=== PATIENT | male | born 1965 | race Caucasian/White ===

== ENCOUNTER 2017-12-18 06:59 | Inpatient (IN) | payer MEDICARE, BC ==
[2017-12-18 09:53] LABS: BASOPHILS % (AUTO) 1 % (0-3); EOSINOPHILS % (AUTO) 1 % (0-9); HEMATOCRIT 38 % (39-53); LYMPHOCYTES % (AUTO) 7.31 % (10-50); MEAN CORPUSCULAR HEMOGLOBIN 28.3 pg (27.0-32.0); MEAN CORPUSCULAR HGB CONC 34.1 gm/dl (32.0-36.0); MEAN CORPUSCULAR VOLUME 83 fL (80-100); NEUTROPHILS % (AUTO) 80.2 % (37-80)
[2017-12-18 10:03] LABS: CALCIUM 8.9 mg/dl (8.5-10.1); CARBON DIOXIDE 28.8 mEq/L (21-32); CREATININE 1.28 mg/dl (0.80-1.30); CRP INFLAMMATORY 4.84 mg/dl (0.00-0.33); POTASSIUM 3.9 mMol/L (3.5-5.1)
[2017-12-18] MEDS ORDERED: SODIUM CHLORIDE 0.9% IV SCH ×2 (13:00→15:00)
[2017-12-18] MEDS ORDERED: LEVOFLOXACIN IV SCH ×2 (13:00→15:00)
[2017-12-18] MEDS ORDERED: TACROLIMUS 2 MG PO SCH ×2 (13:00→22:00)
[2017-12-18] MEDS ORDERED: VANCOMYCIN HCL 500 MG PDS 1,000 MG in SODIUM CHLORIDE 0.9% 250 ML 250 ML IV SCH (14:00)
[2017-12-18] MEDS ORDERED: LEVOFLOXACIN 25 MG/ML SOL IV ONE (14:16)
[2017-12-18] MEDS ORDERED: SODIUM CHLORIDE 0.9% 50 ML 50 ML IV ONE (14:16)
[2017-12-18] MEDS ORDERED: VANCOMYCIN HYDROCHLORIDE 500 MG PDS IV ONE (15:42)
[2017-12-18] MEDS ORDERED: SODIUM CHLORIDE 0.9% 250 ML 250 ML IV ONE (15:42)
[2017-12-18] MEDS ORDERED: NOVOLOG FLEXPEN SC SCH ×2 (18:00)
[2017-12-18] MEDS ORDERED: TACROLIMUS 1 MG CAP PO SCH (21:00)
[2017-12-18] MEDS ORDERED: NOVOLOG FLEXPEN SC ONE (21:21)
[2017-12-18] MEDS: SODIUM CHLORIDE 0.9% FLUSH 10 ML SOL IV SCH (22:02)
[2017-12-18] MEDS: METOPROLOL TARTRATE 50 MG TAB PO SCH ×2 (22:05→23:00)
[2017-12-18] MEDS: ATORVASTATIN 10 MG TAB PO SCH (22:06)
[2017-12-18] MEDS: MYCOPHENOLATE 250 MG PO SCH (22:07)
[2017-12-18] MEDS: TACROLIMUS 1 MG CAP PO SCH (22:22)
[2017-12-19 06:58] LABS: BASOPHILS % (AUTO) 1 % (0-3); EOSINOPHILS % (AUTO) 1 % (0-9); HEMATOCRIT 35 % (39-53); HEMOGLOBIN 11.7 gm/dl (13.5-17.7); LYMPHOCYTES % (AUTO) 16.6 % (10-50); MEAN CORPUSCULAR HGB CONC 33.8 gm/dl (32.0-36.0); MEAN CORPUSCULAR VOLUME 83 fL (80-100); MONOCYTES % (AUTO) 14.3 % (0-12); NEUTROPHILS % (AUTO) 67.2 % (37-80)
[2017-12-19 07:06] LABS: CALCIUM 9.1 mg/dl (8.5-10.1); CARBON DIOXIDE 29.2 mEq/L (21-32); CREATININE 1.26 mg/dl (0.80-1.30); CRP INFLAMMATORY 5.14 mg/dl (0.00-0.33); POTASSIUM 4.2 mMol/L (3.5-5.1)
[2017-12-19] MEDS: SODIUM CHLORIDE 0.9% FLUSH 10 ML SOL IV SCH ×3 (07:22→21:05)
[2017-12-19] MEDS ORDERED: MULTIVITAMIN2 1 EA TAB PO SCH ×2 (09:00→21:00)
[2017-12-19] MEDS: INSULIN DEGLUDEC 100 UNIT SQ SCH (09:14)
[2017-12-19] MEDS: MYCOPHENOLATE 250 MG PO SCH ×2 (09:15→21:05)
[2017-12-19] MEDS: DULOXETINE HCL 30 MG CAPSULE.DR PO SCH (09:18)
[2017-12-19] MEDS: TACROLIMUS PO SCH (09:18)
[2017-12-19] MEDS: PANTOPRAZOLE SODIUM 40 MG ECT PO SCH (09:19)
[2017-12-19] MEDS: PREDNISONE 5 MG TAB PO SCH (09:19)
[2017-12-19] MEDS: METOPROLOL SUCCINATE 50 MG ER TAB PO SCH (09:19)
[2017-12-19] MEDS ORDERED: PHARMACOKINETICS 1 MISC PRN (09:46)
[2017-12-19] MEDS: NOVOLOG FLEXPEN SC SCH ×3 (11:33→21:01)
[2017-12-19] MEDS: VANCOMYCIN HCL 500 MG PDS 1,000 MG in SODIUM CHLORIDE 0.9% 250 ML 250 ML IV SCH (12:29)
[2017-12-19] MEDS ORDERED: ENOXAPARIN 40 MG SOL SC SCH (13:15)
[2017-12-19] MEDS: LEVOFLOXACIN 25 MG/ML 500 MG in SODIUM CHLORIDE 0.9% 100 ML 100 ML IV SCH (14:36)
[2017-12-19] MEDS ORDERED: VANCOMYCIN HCL 500 MG PDS 1,000 MG in SODIUM CHLORIDE 0.9% 250 ML 250 ML IV SCH (16:00)
[2017-12-19] MEDS: TACROLIMUS 1 MG CAP PO SCH (21:05)
[2017-12-19] MEDS: ATORVASTATIN 10 MG TAB PO SCH (21:05)
[2017-12-20] MEDS ORDERED: VANCOMYCIN HYDROCHLORIDE 500 MG PDS IV ONE ×3 (00:01→23:44)
[2017-12-20] MEDS ORDERED: SODIUM CHLORIDE 0.9% 250 ML 250 ML IV ONE ×3 (00:01→23:44)
[2017-12-20] MEDS: VANCOMYCIN HCL 500 MG PDS 1,000 MG in SODIUM CHLORIDE 0.9% 250 ML 250 ML IV SCH ×3 (00:15→23:58)
[2017-12-20] MEDS: SODIUM CHLORIDE 0.9% FLUSH 10 ML SOL IV SCH ×5 (00:17→23:59)
[2017-12-20 06:59] LABS: BASOPHILS % (AUTO) 1 % (0-3); EOSINOPHILS % (AUTO) 1 % (0-9); HEMATOCRIT 36 % (39-53); HEMOGLOBIN 12.4 gm/dl (13.5-17.7); LYMPHOCYTES % (AUTO) 16.5 % (10-50); MEAN CORPUSCULAR HEMOGLOBIN 28.3 pg (27.0-32.0); MEAN CORPUSCULAR HGB CONC 34.4 gm/dl (32.0-36.0); MEAN CORPUSCULAR VOLUME 82 fL (80-100); MONOCYTES % (AUTO) 11.6 % (0-12); NEUTROPHILS % (AUTO) 70.1 % (37-80)
[2017-12-20 07:10] LABS: CALCIUM 9.5 mg/dl (8.5-10.1); CARBON DIOXIDE 28.8 mEq/L (21-32); CREATININE 1.4 mg/dl (0.80-1.30); POTASSIUM 4.4 mMol/L (3.5-5.1)
[2017-12-20] MEDS: NOVOLOG FLEXPEN SC SCH ×4 (07:50→21:41)
[2017-12-20] MEDS ORDERED: INSULIN DEGLUDEC 200 UNIT/ML INSULN.PEN SQ SCH (09:00)
[2017-12-20] MEDS: DULOXETINE HCL 30 MG CAPSULE.DR PO SCH (09:05)
[2017-12-20] MEDS: MYCOPHENOLATE 250 MG PO SCH ×2 (09:05→21:43)
[2017-12-20] MEDS: TACROLIMUS PO SCH (09:06)
[2017-12-20] MEDS: METOPROLOL SUCCINATE 50 MG ER TAB PO SCH (09:06)
[2017-12-20] MEDS: PREDNISONE 5 MG TAB PO SCH (09:06)
[2017-12-20] MEDS ORDERED: INSULIN DEGLUDEC 200 UNIT/ML INSULN.PEN SQ ONE ×2 (10:00→15:00)
[2017-12-20] MEDS ORDERED: BUPIVACAINE HCL 0.25% MPF 30 ML SOL INFIL ONE (12:41)
[2017-12-20] MEDS ORDERED: FENTANYL 100MCG/2ML SOL ONE (12:42)
[2017-12-20] MEDS ORDERED: MIDAZOLAM 2 MG/2 ML SOL ONE ×2 (12:42→13:25)
[2017-12-20] MEDS ORDERED: LIDOCAINE HCL 1% MPF 30 SOL ONE (13:21)
[2017-12-20] MEDS ORDERED: BACITRACIN 500 U/GM OIN TOP ONE (13:46)
[2017-12-20] MEDS ORDERED: LEVOFLOXACIN 25 MG/ML SOL IV ONE (14:39)
[2017-12-20] MEDS ORDERED: SODIUM CHLORIDE 0.9% 100 ML 100 ML IV ONE (14:39)
[2017-12-20] MEDS: LEVOFLOXACIN 25 MG/ML 500 MG in SODIUM CHLORIDE 0.9% 100 ML 100 ML IV SCH (14:45)
[2017-12-20] MEDS: TACROLIMUS 1 MG CAP PO SCH (21:43)
[2017-12-20] MEDS: ATORVASTATIN 10 MG TAB PO SCH (21:43)
[2017-12-21] MEDS: SODIUM CHLORIDE 0.9% FLUSH 10 ML SOL IV SCH ×3 (05:04→21:06)
[2017-12-21 07:20] LABS: BASOPHILS % (AUTO) 1 % (0-3); EOSINOPHILS % (AUTO) 2 % (0-9); HEMATOCRIT 33 % (39-53); HEMOGLOBIN 11.5 gm/dl (13.5-17.7); LYMPHOCYTES % (AUTO) 18.6 % (10-50); MEAN CORPUSCULAR HEMOGLOBIN 29.1 pg (27.0-32.0); MEAN CORPUSCULAR HGB CONC 35.2 gm/dl (32.0-36.0); MEAN CORPUSCULAR VOLUME 83 fL (80-100); MONOCYTES % (AUTO) 11.5 % (0-12); NEUTROPHILS % (AUTO) 67.1 % (37-80)
[2017-12-21 07:32] LABS: ALBUMIN 2.5 gm/dl (3.4-5.0); BILIRUBIN,TOTAL 0.3 mg/dl (0.2-1.0); CALCIUM 8.9 mg/dl (8.5-10.1); CARBON DIOXIDE 27.9 mEq/L (21-32); CREATININE 1.25 mg/dl (0.80-1.30); CRP INFLAMMATORY 4.12 mg/dl (0.00-0.33); POTASSIUM 4.2 mMol/L (3.5-5.1); TOTAL PROTEIN 6.5 gm/dl (6.4-8.2)
[2017-12-21] MEDS: NOVOLOG FLEXPEN SC SCH ×4 (07:39→21:00)
[2017-12-21] MEDS: PANTOPRAZOLE SODIUM 40 MG ECT PO SCH (08:51)
[2017-12-21] MEDS: DULOXETINE HCL 30 MG CAPSULE.DR PO SCH (08:51)
[2017-12-21] MEDS: PREDNISONE 5 MG TAB PO SCH (08:51)
[2017-12-21] MEDS: METOPROLOL SUCCINATE 50 MG ER TAB PO SCH (08:52)
[2017-12-21] MEDS: MYCOPHENOLATE 250 MG PO SCH ×2 (08:53→21:06)
[2017-12-21] MEDS: INSULIN DEGLUDEC 100 UNIT SQ SCH (08:59)
[2017-12-21] MEDS: TACROLIMUS PO SCH (09:01)
[2017-12-21] MEDS ORDERED: SODIUM CHLORIDE 0.9% 250 ML 250 ML IV ONE ×2 (11:47→22:32)
[2017-12-21] MEDS ORDERED: VANCOMYCIN HYDROCHLORIDE 500 MG PDS IV ONE ×2 (11:47→22:32)
[2017-12-21] MEDS: VANCOMYCIN HCL 500 MG PDS 1,000 MG in SODIUM CHLORIDE 0.9% 250 ML 250 ML IV SCH ×2 (11:57→23:19)
[2017-12-21] MEDS ORDERED: SODIUM CHLORIDE 0.9% 100 ML 100 ML IV ONE (15:59)
[2017-12-21] MEDS ORDERED: LEVOFLOXACIN 25 MG/ML SOL IV ONE (15:59)
[2017-12-21] MEDS: LEVOFLOXACIN 25 MG/ML 500 MG in SODIUM CHLORIDE 0.9% 100 ML 100 ML IV SCH (16:30)
[2017-12-21] MEDS: TACROLIMUS 1 MG CAP PO SCH (21:06)
[2017-12-21] MEDS: ATORVASTATIN 10 MG TAB PO SCH (21:06)
[2017-12-22] MEDS: SODIUM CHLORIDE 0.9% FLUSH 10 ML SOL IV SCH ×4 (02:00→18:56)
[2017-12-22] MEDS: NOVOLOG FLEXPEN SC SCH ×4 (07:26→21:32)
[2017-12-22] MEDS: PANTOPRAZOLE SODIUM 40 MG ECT PO SCH (09:34)
[2017-12-22] MEDS: METOPROLOL SUCCINATE 50 MG ER TAB PO SCH (09:34)
[2017-12-22] MEDS: DULOXETINE HCL 30 MG CAPSULE.DR PO SCH (09:35)
[2017-12-22] MEDS: PREDNISONE 5 MG TAB PO SCH (09:35)
[2017-12-22] MEDS: MYCOPHENOLATE 250 MG PO SCH ×2 (09:35→21:33)
[2017-12-22] MEDS: TACROLIMUS PO SCH (09:36)
[2017-12-22] MEDS: INSULIN DEGLUDEC 80 UNIT SQ SCH (10:09)
[2017-12-22] MEDS: INSULIN DEGLUDEC 100 UNIT SQ SCH (10:14)
[2017-12-22] MEDS: VANCOMYCIN HCL 500 MG PDS 1,000 MG in SODIUM CHLORIDE 0.9% 250 ML 250 ML IV SCH (12:43)
[2017-12-22] MEDS ORDERED: SODIUM CHLORIDE 0.9% 100 ML 100 ML IV ONE (13:20)
[2017-12-22] MEDS ORDERED: LEVOFLOXACIN 25 MG/ML SOL IV ONE (13:20)
[2017-12-22] MEDS ORDERED: SODIUM CHLORIDE 0.9% 250 ML 250 ML IV ONE ×2 (13:24→23:57)
[2017-12-22] MEDS ORDERED: VANCOMYCIN HYDROCHLORIDE 500 MG PDS IV ONE ×2 (13:24→23:57)
[2017-12-22] MEDS: LEVOFLOXACIN 25 MG/ML 500 MG in SODIUM CHLORIDE 0.9% 100 ML 100 ML IV SCH (15:03)
[2017-12-22] MEDS: ATORVASTATIN 10 MG TAB PO SCH (21:33)
[2017-12-22] MEDS: TACROLIMUS 1 MG CAP PO SCH (21:33)
[2017-12-23] MEDS: VANCOMYCIN HCL 500 MG PDS 1,000 MG in SODIUM CHLORIDE 0.9% 250 ML 250 ML IV SCH ×3 (00:05→23:55)
[2017-12-23] MEDS: SODIUM CHLORIDE 0.9% FLUSH 10 ML SOL IV SCH ×9 (00:06→23:56)
[2017-12-23] MEDS: NOVOLOG FLEXPEN SC SCH ×4 (07:52→21:41)
[2017-12-23] MEDS: MYCOPHENOLATE 250 MG PO SCH ×2 (09:16→21:40)
[2017-12-23] MEDS: DULOXETINE HCL 30 MG CAPSULE.DR PO SCH (09:17)
[2017-12-23] MEDS: PREDNISONE 5 MG TAB PO SCH (09:17)
[2017-12-23] MEDS: METOPROLOL SUCCINATE 50 MG ER TAB PO SCH (09:18)
[2017-12-23] MEDS: PANTOPRAZOLE SODIUM 40 MG ECT PO SCH (09:18)
[2017-12-23] MEDS: INSULIN DEGLUDEC 80 UNIT SQ SCH (09:19)
[2017-12-23 09:45] LABS: CALCIUM 9.1 mg/dl (8.5-10.1); CARBON DIOXIDE 28.6 mEq/L (21-32); CREATININE 1.25 mg/dl (0.80-1.30); CRP INFLAMMATORY 2.86 mg/dl (0.00-0.33); POTASSIUM 4.4 mMol/L (3.5-5.1)
[2017-12-23 09:51] LABS: BASOPHILS % (AUTO) 1 % (0-3); EOSINOPHILS % (AUTO) 2 % (0-9); HEMATOCRIT 33 % (39-53); HEMOGLOBIN 11.4 gm/dl (13.5-17.7); LYMPHOCYTES % (AUTO) 20.7 % (10-50); MEAN CORPUSCULAR HEMOGLOBIN 28.4 pg (27.0-32.0); MEAN CORPUSCULAR HGB CONC 34.6 gm/dl (32.0-36.0); MEAN CORPUSCULAR VOLUME 82 fL (80-100); MONOCYTES % (AUTO) 9.8 % (0-12); NEUTROPHILS % (AUTO) 66.4 % (37-80)
[2017-12-23] MEDS: TACROLIMUS PO SCH (10:07)
[2017-12-23] MEDS: ENOXAPARIN 40 MG SOL SC SCH (10:56)
[2017-12-23] MEDS: LEVOFLOXACIN 25 MG/ML 500 MG in SODIUM CHLORIDE 0.9% 100 ML 100 ML IV SCH (14:32)
[2017-12-23] MEDS: ATORVASTATIN 10 MG TAB PO SCH (21:40)
[2017-12-23] MEDS: TACROLIMUS 1 MG CAP PO SCH (21:42)
[2017-12-23] MEDS ORDERED: SODIUM CHLORIDE 0.9% 250 ML 250 ML IV ONE (23:50)
[2017-12-23] MEDS ORDERED: VANCOMYCIN HYDROCHLORIDE 500 MG PDS IV ONE (23:50)
[2017-12-24] MEDS: SODIUM CHLORIDE 0.9% FLUSH 10 ML SOL IV SCH ×4 (01:55→23:30)
[2017-12-24] MEDS: NOVOLOG FLEXPEN SC SCH ×4 (06:52→21:46)
[2017-12-24 07:15] LABS: CALCIUM 9.3 mg/dl (8.5-10.1); CARBON DIOXIDE 28.7 mEq/L (21-32); CREATININE 1.17 mg/dl (0.80-1.30); POTASSIUM 4.3 mMol/L (3.5-5.1)
[2017-12-24 07:36] LABS: BASOPHILS % (AUTO) 1 % (0-3); EOSINOPHILS % (AUTO) 3 % (0-9); HEMATOCRIT 33 % (39-53); HEMOGLOBIN 11.4 gm/dl (13.5-17.7); LYMPHOCYTES % (AUTO) 24.3 % (10-50); MEAN CORPUSCULAR HEMOGLOBIN 28.4 pg (27.0-32.0); MEAN CORPUSCULAR HGB CONC 34.3 gm/dl (32.0-36.0); MEAN CORPUSCULAR VOLUME 83 fL (80-100); MONOCYTES % (AUTO) 8.5 % (0-12); NEUTROPHILS % (AUTO) 63.3 % (37-80)
[2017-12-24] MEDS: MYCOPHENOLATE 250 MG PO SCH ×2 (09:49→21:44)
[2017-12-24] MEDS: DULOXETINE HCL 30 MG CAPSULE.DR PO SCH (09:50)
[2017-12-24] MEDS: PREDNISONE 5 MG TAB PO SCH (09:51)
[2017-12-24] MEDS: PANTOPRAZOLE SODIUM 40 MG ECT PO SCH (09:51)
[2017-12-24] MEDS: METOPROLOL SUCCINATE 50 MG ER TAB PO SCH (09:52)
[2017-12-24] MEDS: ENOXAPARIN 40 MG SOL SC SCH (09:53)
[2017-12-24] MEDS: INSULIN DEGLUDEC 70 UNIT SQ SCH (09:54)
[2017-12-24] MEDS: TACROLIMUS PO SCH (09:55)
[2017-12-24] MEDS ORDERED: SODIUM CHLORIDE 0.9% 250 ML 250 ML IV ONE ×2 (12:03→23:14)
[2017-12-24] MEDS ORDERED: VANCOMYCIN HYDROCHLORIDE 500 MG PDS IV ONE ×2 (12:03→23:13)
[2017-12-24] MEDS: VANCOMYCIN HCL 500 MG PDS 1,000 MG in SODIUM CHLORIDE 0.9% 250 ML 250 ML IV SCH ×2 (12:16→23:28)
[2017-12-24] MEDS ORDERED: LEVOFLOXACIN 500 MG TAB PO SCH (14:30)
[2017-12-24] MEDS: ATORVASTATIN 10 MG TAB PO SCH (21:44)
[2017-12-24] MEDS: TACROLIMUS 1 MG CAP PO SCH (21:45)
[2017-12-25 01:26] VITALS: RESP 16
[2017-12-25] MEDS: SODIUM CHLORIDE 0.9% FLUSH 10 ML SOL IV SCH ×2 (03:52→10:02)
[2017-12-25] MEDS: NOVOLOG FLEXPEN SC SCH ×2 (07:13→12:46)
[2017-12-25 07:22] LABS: HEMATOCRIT 36 % (39-53); HEMOGLOBIN 12.2 gm/dl (13.5-17.7); MEAN CORPUSCULAR HEMOGLOBIN 28.2 pg (27.0-32.0); MEAN CORPUSCULAR HGB CONC 34.2 gm/dl (32.0-36.0); MEAN CORPUSCULAR VOLUME 82 fL (80-100)
[2017-12-25 07:27] LABS: ALBUMIN 2.6 gm/dl (3.4-5.0); BILIRUBIN,TOTAL 0.3 mg/dl (0.2-1.0); CALCIUM 9.4 mg/dl (8.5-10.1); CARBON DIOXIDE 29.8 mEq/L (21-32); CREATININE 1.31 mg/dl (0.80-1.30); CRP INFLAMMATORY 1.1 mg/dl (0.00-0.33); POTASSIUM 4.4 mMol/L (3.5-5.1); TOTAL PROTEIN 6.6 gm/dl (6.4-8.2)
[2017-12-25 07:50] LABS: BAND NEUTROPHILS % (MANUAL) 4 %; BASOPHILS % (MANUAL) 0 % (0-3); EOSINOPHILS % (MANUAL) 2 % (0-9); LYMPHOCYTES % (MANUAL) 19 % (10-50); MONOCYTES % (MANUAL) 6 % (0-12); NEUTROPHILS % (MANUAL) 69 % (37-80); NORMAL RBCS PRESENT
[2017-12-25 08:22] VITALS: BP 151/81; PULSE 57; TEMP 97.6; O2SAT 98
[2017-12-25] MEDS: PANTOPRAZOLE SODIUM 40 MG ECT PO SCH (09:49)
[2017-12-25] MEDS: DULOXETINE HCL 30 MG CAPSULE.DR PO SCH (09:50)
[2017-12-25] MEDS: METOPROLOL SUCCINATE 50 MG ER TAB PO SCH (09:50)
[2017-12-25] MEDS: PREDNISONE 5 MG TAB PO SCH (09:50)
[2017-12-25] MEDS: MYCOPHENOLATE 250 MG PO SCH (09:51)
[2017-12-25] MEDS: TACROLIMUS PO SCH (09:52)
[2017-12-25] MEDS: ENOXAPARIN 40 MG SOL SC SCH (09:55)
[2017-12-25] MEDS: INSULIN DEGLUDEC 70 UNIT SQ SCH (09:56)
[2017-12-25] MEDS ORDERED: VANCOMYCIN HYDROCHLORIDE 500 MG PDS IV ONE (10:07)
[2017-12-25] MEDS ORDERED: SODIUM CHLORIDE 0.9% 250 ML 250 ML IV ONE (10:07)
[2017-12-25] MEDS: VANCOMYCIN HCL 500 MG PDS 1,000 MG in SODIUM CHLORIDE 0.9% 250 ML 250 ML IV SCH (11:09)
== END 2017-12-25 12:54 | disposition swing bed (61) | DRG 504 ==
LOC: WOUND 06:59 → ACUTE CARE 12:35
PROVIDERS: ADMIT Family Medicine; ATTEND Family Medicine
PROC: 0Y6Q0Z1 Detachment at Left 1st Toe, High, Open Approach (ICD-10-PCS; principal; 2017-12-20 13:00)
PROC: F01K5ZZ Range of Motion and Joint Integrity Assessment of Musculoskeletal System - Upper Back / Upper Extremity (ICD-10-PCS; 2017-12-24)
PROC: F02Z3ZZ Grooming/Personal Hygiene Assessment (ICD-10-PCS; 2017-12-24)
DX: I96 Gangrene, not elsewhere classified (principal); M86.9 Osteomyelitis, unspecified; S60.414A Abrasion of right ring finger, initial encounter; L03.90 Cellulitis, unspecified; Z79.4 Long term (current) use of insulin; E10.22 Type 1 diabetes mellitus with diabetic chronic kidney disease; N18.9 Chronic kidney disease, unspecified; Z89.021 Acquired absence of right finger(s); E10.65 Type 1 diabetes mellitus with hyperglycemia; S60.414D Abrasion of right ring finger, subsequent encounter; L97.524 Non-pressure chronic ulcer of other part of left foot with necrosis of bone; Z89.412 Acquired absence of left great toe
CPT/HCPCS: 36415; 80048; 80053; 82947; 82962; 85007; 85025; 85027; 87070; 87075; 87077; 87186; 93005; 99213; 99232; J1650; J1956; J2250; J3010; J3370; A6232; A6402; A6446; A9270-GY; J1815; J2001; L3260

== ENCOUNTER 2018-01-27 14:06 | Inpatient (IN) | payer MEDICARE, BC ==
[2018-01-27] MEDS ORDERED: PHARMACOKINETICS 1 MISC PRN (15:52)
[2018-01-27] MEDS ORDERED: SODIUM CHLORIDE 0.9% 500 ML 500 ML IV ONE (17:49)
[2018-01-27] MEDS ORDERED: VANCOMYCIN HYDROCHLORIDE 500 MG PDS IV ONE (17:49)
[2018-01-27] MEDS: VANCOMYCIN HCL 500 MG PDS 1,500 MG in SODIUM CHLORIDE 0.9% 500 ML 500 ML IV SCH (18:08)
[2018-01-27] MEDS: LEVOFLOXACIN 500 MG TAB PO SCH (18:08)
[2018-01-27] MEDS: NOVOLOG FLEXPEN SC SCH ×2 (20:07→22:00)
[2018-01-27] MEDS: ASPIRIN EC 81 MG PO SCH (21:27)
[2018-01-27] MEDS: ATORVASTATIN 10 MG TAB PO SCH (21:27)
[2018-01-27] MEDS: MULTIVITAMIN2 1 EA TAB PO SCH (21:27)
[2018-01-27] MEDS: TACROLIMUS 1 MG CAP PO SCH (21:30)
[2018-01-28] MEDS ORDERED: VANCOMYCIN HYDROCHLORIDE 500 MG PDS IV ONE ×2 (05:00→18:52)
[2018-01-28] MEDS ORDERED: SODIUM CHLORIDE 0.9% 500 ML 500 ML IV ONE ×3 (05:00→18:53)
[2018-01-28] MEDS: VANCOMYCIN HCL 500 MG PDS 1,500 MG in SODIUM CHLORIDE 0.9% 500 ML 500 ML IV SCH ×2 (05:45→18:59)
[2018-01-28 07:45] LABS: ALBUMIN 2.4 gm/dl (3.4-5.0); BILIRUBIN,TOTAL 0.3 mg/dl (0.2-1.0); CALCIUM 9.1 mg/dl (8.5-10.1); CARBON DIOXIDE 24.5 mEq/L (21-32); CREATININE 1.33 mg/dl (0.80-1.30); CRP INFLAMMATORY 10.73 mg/dl (0.00-0.33); POTASSIUM 4.2 mMol/L (3.5-5.1); TOTAL PROTEIN 5.9 gm/dl (6.4-8.2)
[2018-01-28 07:46] LABS: BASOPHILS % (AUTO) 1 % (0-3); EOSINOPHILS % (AUTO) 1 % (0-9); HEMATOCRIT 30 % (39-53); HEMOGLOBIN 10.5 gm/dl (13.5-17.7); MEAN CORPUSCULAR HEMOGLOBIN 27.8 pg (27.0-32.0); MEAN CORPUSCULAR HGB CONC 34.8 gm/dl (32.0-36.0); NEUTROPHILS % (AUTO) 73.3 % (37-80)
[2018-01-28 07:48] LABS: MEAN CORPUSCULAR VOLUME 80 fL (80-100)
[2018-01-28] MEDS ORDERED: TACROLIMUS 2 MG PO SCH (09:00)
[2018-01-28] MEDS ORDERED: OMEPRAZOLE 20 MG CAPSULE PO SCH (09:00)
[2018-01-28] MEDS: NOVOLOG FLEXPEN SC SCH ×4 (09:02→21:57)
[2018-01-28] MEDS: ENOXAPARIN 40 MG SOL SC SCH (09:03)
[2018-01-28] MEDS: INSULIN DEGLUDEC SQ SCH (09:10)
[2018-01-28] MEDS: DULOXETINE HCL 30 MG CAPSULE.DR PO SCH (10:09)
[2018-01-28] MEDS: METOPROLOL SUCCINATE 50 MG ER TAB PO SCH (10:10)
[2018-01-28] MEDS: ASPIRIN EC 81 MG PO SCH ×2 (10:10→21:56)
[2018-01-28] MEDS: LEVOFLOXACIN 500 MG TAB PO SCH (10:10)
[2018-01-28] MEDS: PANTOPRAZOLE SODIUM 40 MG ECT PO SCH (10:10)
[2018-01-28] MEDS: PREDNISONE 5 MG TAB PO SCH (10:10)
[2018-01-28] MEDS: TACROLIMUS 1 MG CAP PO SCH ×2 (10:13→21:54)
[2018-01-28] MEDS: MYCOPHENOLATE 250 MG PO SCH ×2 (11:18→21:55)
[2018-01-28] MEDS: ATORVASTATIN 10 MG TAB PO SCH (21:55)
[2018-01-28] MEDS: MULTIVITAMIN2 1 EA TAB PO SCH (21:56)
[2018-01-29] MEDS ORDERED: VANCOMYCIN HYDROCHLORIDE 500 MG PDS IV ONE ×2 (06:19→16:49)
[2018-01-29] MEDS ORDERED: SODIUM CHLORIDE 0.9% 500 ML 500 ML IV ONE ×2 (06:19→16:49)
[2018-01-29] MEDS: VANCOMYCIN HCL 500 MG PDS 1,500 MG in SODIUM CHLORIDE 0.9% 500 ML 500 ML IV SCH ×2 (06:37→17:23)
[2018-01-29 08:17] LABS: ALBUMIN 2.4 gm/dl (3.4-5.0); BILIRUBIN,TOTAL 0.2 mg/dl (0.2-1.0); CALCIUM 9.4 mg/dl (8.5-10.1); CARBON DIOXIDE 24.7 mEq/L (21-32); CREATININE 1.38 mg/dl (0.80-1.30); CRP INFLAMMATORY 7.33 mg/dl (0.00-0.33); POTASSIUM 4.5 mMol/L (3.5-5.1); TOTAL PROTEIN 6.2 gm/dl (6.4-8.2)
[2018-01-29] MEDS: LEVOFLOXACIN 500 MG TAB PO SCH (08:33)
[2018-01-29] MEDS: DULOXETINE HCL 30 MG CAPSULE.DR PO SCH (08:33)
[2018-01-29] MEDS: METOPROLOL SUCCINATE 50 MG ER TAB PO SCH (08:34)
[2018-01-29] MEDS: PREDNISONE 5 MG TAB PO SCH (08:34)
[2018-01-29] MEDS: MYCOPHENOLATE 250 MG PO SCH ×2 (08:35→22:11)
[2018-01-29] MEDS: INSULIN DEGLUDEC SQ SCH (08:35)
[2018-01-29 08:36] LABS: HEMATOCRIT 31 % (39-53); HEMOGLOBIN 10.6 gm/dl (13.5-17.7); MEAN CORPUSCULAR HEMOGLOBIN 27.5 pg (27.0-32.0); MEAN CORPUSCULAR HGB CONC 34.4 gm/dl (32.0-36.0)
[2018-01-29] MEDS: ENOXAPARIN 40 MG SOL SC SCH (08:36)
[2018-01-29] MEDS: NOVOLOG FLEXPEN SC SCH ×5 (08:36→22:16)
[2018-01-29 08:38] LABS: MEAN CORPUSCULAR VOLUME 80 fL (80-100)
[2018-01-29] MEDS: PANTOPRAZOLE SODIUM 40 MG ECT PO SCH (08:39)
[2018-01-29] MEDS: TACROLIMUS 1 MG CAP PO SCH ×2 (08:40→22:14)
[2018-01-29 09:17] LABS: BAND NEUTROPHILS % (MANUAL) 0 %; BASOPHILS % (MANUAL) 0 % (0-3); EOSINOPHILS % (MANUAL) 0 % (0-9); LYMPHOCYTES % (MANUAL) 11 % (10-50); MONOCYTES % (MANUAL) 8 % (0-12); NEUTROPHILS % (MANUAL) 81 % (37-80)
[2018-01-29 09:18] LABS: NORMAL RBCS NORMAL RBCS
[2018-01-29] MEDS ORDERED: INSULIN DEGLUDEC SQ SCH (10:30)
[2018-01-29] MEDS: ASPIRIN EC 81 MG PO SCH ×2 (10:41→22:15)
[2018-01-29] MEDS: ATORVASTATIN 10 MG TAB PO SCH (22:12)
[2018-01-29] MEDS: MULTIVITAMIN2 1 EA TAB PO SCH (22:15)
[2018-01-30] MEDS ORDERED: SODIUM CHLORIDE 0.9% 500 ML 500 ML IV ONE (06:24)
[2018-01-30] MEDS ORDERED: VANCOMYCIN HYDROCHLORIDE 500 MG PDS IV ONE (06:24)
[2018-01-30] MEDS: VANCOMYCIN HCL 500 MG PDS 1,500 MG in SODIUM CHLORIDE 0.9% 500 ML 500 ML IV SCH (06:35)
[2018-01-30] MEDS: NOVOLOG FLEXPEN SC SCH (06:42)
[2018-01-30 07:30] LABS: CALCIUM 9.6 mg/dl (8.5-10.1); CREATININE 1.23 mg/dl (0.80-1.30); CRP INFLAMMATORY 5.53 mg/dl (0.00-0.33); POTASSIUM 4.1 mMol/L (3.5-5.1)
[2018-01-30 08:16] VITALS: BP 154/66; PULSE 70; RESP 18; TEMP 98.7; O2SAT 92
[2018-01-30] MEDS ORDERED: NOVOLOG FLEXPEN SC SCH (08:25)
[2018-01-30] MEDS: PREDNISONE 5 MG TAB PO SCH (08:54)
[2018-01-30] MEDS: DULOXETINE HCL 30 MG CAPSULE.DR PO SCH (08:55)
[2018-01-30] MEDS: PANTOPRAZOLE SODIUM 40 MG ECT PO SCH (08:55)
[2018-01-30] MEDS: MYCOPHENOLATE 250 MG PO SCH (08:55)
[2018-01-30] MEDS: TACROLIMUS 1 MG CAP PO SCH (08:57)
[2018-01-30] MEDS ORDERED: INSULIN DEGLUDEC 200 UNIT/ML INSULN.PEN SQ SCH (09:00)
[2018-01-30] MEDS: ENOXAPARIN 40 MG SOL SC SCH (09:01)
[2018-01-30] MEDS: METOPROLOL SUCCINATE 50 MG ER TAB PO SCH (09:07)
[2018-01-30] MEDS: LEVOFLOXACIN 500 MG TAB PO SCH (09:07)
[2018-01-30] MEDS: ASPIRIN EC 81 MG PO SCH (09:07)
[2018-01-30 09:50] LABS: EOSINOPHILS % (AUTO) 2 % (0-9); HEMATOCRIT 32 % (39-53); HEMOGLOBIN 10.9 gm/dl (13.5-17.7); LYMPHOCYTES % (AUTO) 14.2 % (10-50); MEAN CORPUSCULAR HEMOGLOBIN 27.7 pg (27.0-32.0); MEAN CORPUSCULAR HGB CONC 33.5 gm/dl (32.0-36.0); MEAN CORPUSCULAR VOLUME 83 fL (80-100); MONOCYTES % (AUTO) 7.8 % (0-12); NEUTROPHILS % (AUTO) 75.5 % (37-80)
[2018-01-30 09:51] LABS: BASOPHILS % (AUTO) 0 % (0-3)
== END 2018-01-30 16:15 | disposition short-term general hospital (02) | DRG 541 ==
LOC: ACUTE CARE 16:32
PROVIDERS: ADMIT Family Medicine; ATTEND Family Medicine
DX: M86.9 Osteomyelitis, unspecified (principal); T81.89XA Other complications of procedures, not elsewhere classified, initial encounter; E10.22 Type 1 diabetes mellitus with diabetic chronic kidney disease; E10.65 Type 1 diabetes mellitus with hyperglycemia; N18.9 Chronic kidney disease, unspecified; Z89.412 Acquired absence of left great toe; Z79.4 Long term (current) use of insulin; L97.524 Non-pressure chronic ulcer of other part of left foot with necrosis of bone; L89.892 Pressure ulcer of other site, stage 2
CPT/HCPCS: 36415; 80048; 80053; 82962; 85007; 85025; 85027; 85651; 99232; J1650; J3370; A6219; A6232; A9270-GY; J1815

== ENCOUNTER 2018-04-09 13:49 | Emergency (ER) | payer MEDICARE, BC ==
[2018-04-09 15:07] LABS: BASOPHILS % (AUTO) 1 % (0-3); EOSINOPHILS % (AUTO) 1 % (0-9); HEMATOCRIT 34 % (39-53); HEMOGLOBIN 11.2 gm/dl (13.5-17.7); LYMPHOCYTES % (AUTO) 7.6 % (10-50); MEAN CORPUSCULAR HEMOGLOBIN 25.8 pg (27.0-32.0); MEAN CORPUSCULAR HGB CONC 32.5 gm/dl (32.0-36.0); MONOCYTES % (AUTO) 6.3 % (0-12); NEUTROPHILS % (AUTO) 84.5 % (37-80)
[2018-04-09 15:10] LABS: MEAN CORPUSCULAR VOLUME 79 fL (80-100)
[2018-04-09 15:20] LABS: ALBUMIN 2.5 gm/dl (3.4-5.0); BILIRUBIN,TOTAL 0.4 mg/dl (0.2-1.0); CALCIUM 9.4 mg/dl (8.5-10.1); CARBON DIOXIDE 26.9 mEq/L (21-32); CREATININE 1.69 mg/dl (0.80-1.30); POTASSIUM 5.2 mMol/L (3.5-5.1); TOTAL PROTEIN 7.4 gm/dl (6.4-8.2)
[2018-04-09] MEDS ORDERED: INSULIN HUMAN REGULAR 100 U/ML SOL SC ONE (15:22)
[2018-04-09] MEDS ORDERED: INSULIN HUMAN REGULAR 100 U/ML SOL ONE ×2 (15:24→17:47)
[2018-04-09 15:29] LABS: HEMOGLOBIN A1C 9.9 % (4.8-6.0)
[2018-04-09] MEDS ORDERED: SODIUM CHLORIDE 0.9% FLUSH 10 ML SOL IV PRN (17:31)
[2018-04-09] MEDS ORDERED: SODIUM CHLORIDE 0.9% 1000ML 1,000 ML IV ONE (17:31)
[2018-04-09 17:42] VITALS: BP 136/84; PULSE 78; RESP 18; TEMP 98.3; O2SAT 98
[2018-04-09] MEDS ORDERED: INSULIN HUMAN REGULAR 500 U in SODIUM CHLORIDE 0.9% 500 ML 500 ML IV SCH (17:45)
[2018-04-09] MEDS ORDERED: SODIUM CHLORIDE 0.9% 500 ML 500 ML IV ONE (18:30)
== END 2018-04-09 18:39 | disposition short-term general hospital (02) | DRG 638 ==
LOC: ED 13:49 → EDSTATUS 15:30 → ED 18:39
DX: E10.65 Type 1 diabetes mellitus with hyperglycemia (principal); T81.4XXA Infection following a procedure, initial encounter; B95.61 Methicillin susceptible Staphylococcus aureus infection as the cause of diseases classified elsewhere; B95.2 Enterococcus as the cause of diseases classified elsewhere
CPT/HCPCS: 36415; 73723; 80053; 82962; 83036; 85025; 87040; 87070; 87077; 87186; 96365; 96372; 99284; 99291; J1815; A6232; A6402; A9585

== ENCOUNTER 2018-05-09 11:41 | Day surgery (SDC) | payer MEDICARE, BC ==
[2018-05-09] MEDS ORDERED: LIDOCAINE HCL 1% MPF 30 SOL ONE (12:49)
[2018-05-09] MEDS ORDERED: BUPIVACAINE HCL 0.25% MPF 30 ML SOL INFIL ONE (12:59)
[2018-05-09] MEDS ORDERED: PROPOFOL 500 MG/50 ML EMU IV ONE (13:01)
[2018-05-09] MEDS ORDERED: PROPOFOL 10 MG/ML 200 MG/20 ML EMU IV ONE (13:01)
[2018-05-09] MEDS ORDERED: BACITRACIN 500 U/GM OIN TOP ONE (13:48)
[2018-05-09] MEDS ORDERED: ROCURONIUM BROMIDE 10 MG/ML SOL IV ONE (15:19)
[2018-05-09 17:04] VITALS: BP 150/77; PULSE 75; RESP 16; TEMP 98.5; O2SAT 95
== END 2018-05-09 15:15 | DRG 301 ==
LOC: SURG 11:41 → EDSTATUS 13:00 → SURG 15:15
PROVIDERS: ATTEND Surgery
DX: E10.52 Type 1 diabetes mellitus with diabetic peripheral angiopathy with gangrene (principal); Z89.422 Acquired absence of other left toe(s)
CPT/HCPCS: 82962; J0690; A6402; A9270-GY; J2001; J2704; J3490

== ENCOUNTER 2018-07-09 06:50 | Inpatient (IN) | payer MEDICARE, BC ==
[2018-07-09 15:18] LABS: BASOPHILS % (AUTO) 1 % (0-3); EOSINOPHILS % (AUTO) 1 % (0-9); HEMATOCRIT 38 % (39-53); HEMOGLOBIN 12.1 gm/dl (13.5-17.7); LYMPHOCYTES % (AUTO) 13.1 % (10-50); MEAN CORPUSCULAR HEMOGLOBIN 25.3 pg (27.0-32.0); MEAN CORPUSCULAR HGB CONC 31.8 gm/dl (32.0-36.0); MONOCYTES % (AUTO) 6.2 % (0-12); NEUTROPHILS % (AUTO) 78.8 % (37-80)
[2018-07-09 15:20] LABS: MEAN CORPUSCULAR VOLUME 79 fL (80-100)
[2018-07-09 15:22] LABS: CALCIUM 9.4 mg/dl (8.5-10.1); CARBON DIOXIDE 27.5 mEq/L (21-32); CREATININE 1.32 mg/dl (0.80-1.30)
[2018-07-09 15:24] LABS: POTASSIUM 6.2 mMol/L (3.5-5.1)
[2018-07-09] MEDS ORDERED: SODIUM CHLORIDE 0.9% 1000 ML SOL IV SCH ×2 (16:15→18:45)
[2018-07-09 17:28] VITALS: RESP 16
[2018-07-09] MEDS: SODIUM POLYSTYRENE SULFONATE 15 GM/60 ML SUS PO SCH ×2 (17:59→20:00)
[2018-07-09] MEDS ORDERED: NOVOLOG FLEXPEN SC SCH (18:00)
[2018-07-09] MEDS ORDERED: NOVOLOG FLEXPEN SC PRN (18:55)
[2018-07-09] MEDS ORDERED: ACETAMINOPHEN 325 MG PO PRN (18:55)
[2018-07-09 19:44] LABS: CARBON DIOXIDE 24.8 mEq/L (21-32); CREATININE 1.29 mg/dl (0.80-1.30)
[2018-07-09 19:46] LABS: POTASSIUM 6.6 mMol/L (3.5-5.1)
[2018-07-09] MEDS: SODIUM CHLORIDE 0.9% 1000ML 1,000 ML IV SCH (20:15)
[2018-07-09] MEDS ORDERED: ATORVASTATIN 10 MG TAB PO SCH (21:00)
[2018-07-09] MEDS ORDERED: TACROLIMUS 1 MG CAP PO SCH (21:00)
[2018-07-09] MEDS ORDERED: INSULIN DEGLUDEC 38 UNIT SQ SCH (21:00)
[2018-07-09] MEDS ORDERED: INSULIN DEGLUDEC 200 UNIT/ML INSULN.PEN SQ ONE (21:00)
[2018-07-09] MEDS ORDERED: MULTIVITAMIN2 1 EA TAB PO SCH (21:00)
[2018-07-09] MEDS: ASPIRIN EC 81 MG PO SCH (21:59)
[2018-07-09] MEDS: MYCOPHENOLATE 250 MG PO SCH (21:59)
[2018-07-09] MEDS: GABAPENTIN 300 MG CAP PO SCH (22:00)
[2018-07-09] MEDS: SODIUM CHLORIDE 0.9% FLUSH 10 ML SOL IV SCH (22:01)
[2018-07-09 22:19] LABS: CALCIUM 9.1 mg/dl (8.5-10.1); CARBON DIOXIDE 24.2 mEq/L (21-32); CREATININE 1.34 mg/dl (0.80-1.30); POTASSIUM 5.2 mMol/L (3.5-5.1)
[2018-07-10] MEDS: SODIUM CHLORIDE 0.9% FLUSH 10 ML SOL IV SCH ×2 (05:11→12:00)
[2018-07-10] MEDS: SODIUM CHLORIDE 0.9% 1000ML 1,000 ML IV SCH (06:11)
[2018-07-10] MEDS ORDERED: PANTOPRAZOLE SODIUM 40 MG ECT PO SCH (07:00)
[2018-07-10 07:33] LABS: BASOPHILS % (AUTO) 1 % (0-3); EOSINOPHILS % (AUTO) 2 % (0-9); HEMATOCRIT 39 % (39-53); HEMOGLOBIN 11.7 gm/dl (13.5-17.7); LYMPHOCYTES % (AUTO) 27.8 % (10-50); MEAN CORPUSCULAR HEMOGLOBIN 24.5 pg (27.0-32.0); MEAN CORPUSCULAR VOLUME 82 fL (80-100); MONOCYTES % (AUTO) 8.7 % (0-12); NEUTROPHILS % (AUTO) 60.5 % (37-80)
[2018-07-10 07:42] LABS: CALCIUM 9.4 mg/dl (8.5-10.1); CARBON DIOXIDE 27.1 mEq/L (21-32); CREATININE 1.14 mg/dl (0.80-1.30); POTASSIUM 4.6 mMol/L (3.5-5.1)
[2018-07-10] MEDS ORDERED: NOVOLOG FLEXPEN SC SCH ×2 (08:00→12:00)
[2018-07-10 08:51] VITALS: BP 154/83; PULSE 59; TEMP 96.8; O2SAT 99
[2018-07-10] MEDS ORDERED: DULOXETINE HCL 30 MG CAPSULE.DR PO SCH (09:00)
[2018-07-10] MEDS ORDERED: METOPROLOL SUCCINATE 50 MG ER TAB PO SCH (09:00)
[2018-07-10] MEDS ORDERED: TACROLIMUS 1 MG CAP PO SCH (09:00)
[2018-07-10] MEDS ORDERED: PREDNISONE 5 MG TAB PO SCH (09:00)
[2018-07-10] MEDS ORDERED: INSULIN DEGLUDEC 200 UNIT/ML INSULN.PEN SQ SCH ×2 (09:00→21:00)
[2018-07-10] MEDS: GABAPENTIN 300 MG CAP PO SCH (09:49)
[2018-07-10] MEDS: ASPIRIN EC 81 MG PO SCH (09:49)
[2018-07-10] MEDS: SODIUM POLYSTYRENE SULFONATE 15 GM/60 ML SUS PO SCH ×3 (09:50→15:21)
[2018-07-10] MEDS: MYCOPHENOLATE 250 MG PO SCH (10:27)
== END 2018-07-10 15:20 | DRG 641 ==
LOC: WOUND 06:50 → ACUTE CARE 16:00 → UNDOADMIN 16:00 → ACUTE CARE 16:10
PROVIDERS: ADMIT Family Medicine; ATTEND Family Medicine
DX: E87.5 Hyperkalemia (principal); R73.9 Hyperglycemia, unspecified; B99.9 Unspecified infectious disease; L97.523 Non-pressure chronic ulcer of other part of left foot with necrosis of muscle; E10.621 Type 1 diabetes mellitus with foot ulcer
CPT/HCPCS: 36415; 80048; 82962; 84132; 85025; 93005; 93012; 97597; 99213; A6232; A9270-GY; J1815

== ENCOUNTER 2018-12-12 11:57 | Inpatient (IN) | payer MEDICARE, BC ==
[2018-12-12] MEDS ORDERED: VANCOMYCIN HCL 500 MG PDS 1,000 MG in SODIUM CHLORIDE 0.9% 250 ML 250 ML IV ONE (12:19)
[2018-12-12] MEDS ORDERED: PHARMACOKINETICS 1 MISC PRN (12:42)
[2018-12-12] MEDS ORDERED: INSULIN GLARGINE, RECOMBINAN 100 U/ML SOL SC ONE ×2 (14:24→14:36)
[2018-12-12] MEDS ORDERED: NOVOLOG FLEXPEN SC ONE ×2 (14:42→23:30)
[2018-12-12] MEDS ORDERED: SODIUM CHLORIDE 0.9% 250 ML 250 ML IV ONE (15:13)
[2018-12-12] MEDS ORDERED: VANCOMYCIN HYDROCHLORIDE 500 MG PDS IV ONE (15:13)
[2018-12-12] MEDS ORDERED: SODIUM CHLORIDE 0.9% 100 ML 100 ML IV ONE ×2 (15:49→20:55)
[2018-12-12] MEDS ORDERED: PIPERACILLIN/TAZOBACT 3.375 GM PDS IV ONE ×2 (15:49→20:53)
[2018-12-12] MEDS: TACROLIMUS 1 MG CAP PO SCH ×2 (16:14→21:05)
[2018-12-12] MEDS: MYCOPHENOLATE 250 MG PO SCH ×2 (16:14→21:03)
[2018-12-12] MEDS: ACETAMINOPHEN 325 MG PO PRN ×2 (16:15→17:51)
[2018-12-12] MEDS: PIPERACILLIN/TAZOBACT 3.375 GM 3.375 GM in SODIUM CHLORIDE 0.9% 100 ML 100 ML IV SCH (16:52)
[2018-12-12] MEDS: SODIUM CHLORIDE 0.9% FLUSH 10 ML SOL IV PRN (17:24)
[2018-12-12] MEDS: NOVOLOG FLEXPEN SC SCH ×2 (17:47→21:09)
[2018-12-12] MEDS ORDERED: INSULIN DEGLUDEC 72 UNIT SQ SCH (21:00)
[2018-12-12] MEDS: ASPIRIN EC 81 MG PO SCH (21:03)
[2018-12-12] MEDS: ATORVASTATIN 10 MG TAB PO SCH (21:04)
[2018-12-12] MEDS: GABAPENTIN 300 MG CAP PO SCH (21:04)
[2018-12-12] MEDS: INSULIN GLARGINE, RECOMBINAN 100 U/ML SOL SC SCH (21:10)
[2018-12-13] MEDS: PIPERACILLIN/TAZOBACT 3.375 GM 3.375 GM in SODIUM CHLORIDE 0.9% 100 ML 100 ML IV SCH ×3 (01:28→17:50)
[2018-12-13] MEDS ORDERED: VANCOMYCIN HYDROCHLORIDE 500 MG PDS IV ONE ×3 (03:47→19:43)
[2018-12-13] MEDS ORDERED: SODIUM CHLORIDE 0.9% 250 ML 250 ML IV ONE ×2 (03:49→19:45)
[2018-12-13] MEDS: VANCOMYCIN HCL 500 MG PDS 500 MG in SODIUM CHLORIDE 0.9% 100 ML 100 ML IV SCH ×2 (03:54→15:45)
[2018-12-13 07:31] LABS: BASOPHILS % (AUTO) 1 % (0-3); EOSINOPHILS % (AUTO) 1 % (0-9); HEMATOCRIT 36 % (39-53); HEMOGLOBIN 11.5 gm/dl (13.5-17.7); LYMPHOCYTES % (AUTO) 8.7 % (10-50); MEAN CORPUSCULAR HGB CONC 32.1 gm/dl (32.0-36.0); MONOCYTES % (AUTO) 10.8 % (0-12); NEUTROPHILS % (AUTO) 78.7 % (37-80)
[2018-12-13 07:32] LABS: MEAN CORPUSCULAR VOLUME 81 fL (80-100)
[2018-12-13 07:45] LABS: CALCIUM 9.2 mg/dl (8.5-10.1); CARBON DIOXIDE 24.9 mEq/L (21-32); CREATININE 1.77 mg/dl (0.80-1.30); POTASSIUM 3.8 mMol/L (3.5-5.1)
[2018-12-13] MEDS ORDERED: PIPERACILLIN/TAZOBACT 3.375 GM PDS IV ONE ×2 (08:10→17:28)
[2018-12-13] MEDS ORDERED: SODIUM CHLORIDE 0.9% 100 ML 100 ML IV ONE ×2 (08:10→15:34)
[2018-12-13] MEDS: NOVOLOG FLEXPEN SC SCH ×4 (08:13→21:44)
[2018-12-13] MEDS: GABAPENTIN 300 MG CAP PO SCH ×3 (08:16→20:25)
[2018-12-13] MEDS: DULOXETINE HCL 30 MG CAPSULE.DR PO SCH (08:16)
[2018-12-13] MEDS: METOPROLOL SUCCINATE 50 MG ER TAB PO SCH (08:16)
[2018-12-13] MEDS: PREDNISONE 5 MG TAB PO SCH (08:17)
[2018-12-13] MEDS: TACROLIMUS 1 MG CAP PO SCH ×2 (08:18→20:26)
[2018-12-13] MEDS: PANTOPRAZOLE SODIUM 40 MG ECT PO SCH (08:18)
[2018-12-13] MEDS: ASPIRIN EC 81 MG PO SCH ×2 (08:19→20:24)
[2018-12-13] MEDS: MYCOPHENOLATE 250 MG PO SCH ×2 (08:19→20:24)
[2018-12-13 08:36] LABS: HEMOGLOBIN A1C 11.2 % (4.8-6.0)
[2018-12-13] MEDS: ENOXAPARIN 40 MG SOL SC SCH (08:39)
[2018-12-13] MEDS: ATORVASTATIN 10 MG TAB PO SCH (20:24)
[2018-12-13] MEDS: ACETAMINOPHEN 500 MG 500 MG TAB PO PRN (20:34)
[2018-12-13] MEDS: INSULIN GLARGINE, RECOMBINAN 100 U/ML SOL SC SCH (21:43)
[2018-12-14] MEDS: PIPERACILLIN/TAZOBACT 3.375 GM 3.375 GM in SODIUM CHLORIDE 0.9% 100 ML 100 ML IV SCH ×3 (00:42→17:16)
[2018-12-14] MEDS: VANCOMYCIN HCL 500 MG PDS 500 MG in SODIUM CHLORIDE 0.9% 100 ML 100 ML IV SCH ×2 (03:19→15:07)
[2018-12-14 07:29] LABS: CARBON DIOXIDE 24.3 mEq/L (21-32); CREATININE 1.65 mg/dl (0.80-1.30); POTASSIUM 4.1 mMol/L (3.5-5.1)
[2018-12-14] MEDS: NOVOLOG FLEXPEN SC SCH ×4 (08:47→21:55)
[2018-12-14] MEDS: METOPROLOL SUCCINATE 50 MG ER TAB PO SCH (08:55)
[2018-12-14] MEDS: DULOXETINE HCL 30 MG CAPSULE.DR PO SCH (08:55)
[2018-12-14] MEDS: TACROLIMUS 1 MG CAP PO SCH ×2 (08:56→21:26)
[2018-12-14] MEDS: MYCOPHENOLATE 250 MG PO SCH ×2 (08:56→21:26)
[2018-12-14] MEDS: PREDNISONE 5 MG TAB PO SCH (08:56)
[2018-12-14] MEDS: ASPIRIN EC 81 MG PO SCH ×2 (08:57→21:27)
[2018-12-14] MEDS: PANTOPRAZOLE SODIUM 40 MG ECT PO SCH (08:57)
[2018-12-14] MEDS: GABAPENTIN 300 MG CAP PO SCH ×3 (08:57→21:27)
[2018-12-14] MEDS: ENOXAPARIN 40 MG SOL SC SCH (09:00)
[2018-12-14] MEDS: SODIUM CHLORIDE 0.9% FLUSH 10 ML SOL IV PRN (09:27)
[2018-12-14] MEDS ORDERED: SODIUM CHLORIDE 0.9% 100 ML 100 ML IV ONE (15:00)
[2018-12-14] MEDS ORDERED: VANCOMYCIN HYDROCHLORIDE 500 MG PDS IV ONE (15:00)
[2018-12-14] MEDS: ATORVASTATIN 10 MG TAB PO SCH (21:26)
[2018-12-14] MEDS: INSULIN GLARGINE, RECOMBINAN 100 U/ML SOL SC SCH (21:55)
[2018-12-15] MEDS: PIPERACILLIN/TAZOBACT 3.375 GM 3.375 GM in SODIUM CHLORIDE 0.9% 100 ML 100 ML IV SCH ×3 (01:30→18:07)
[2018-12-15] MEDS: SODIUM CHLORIDE 0.9% FLUSH 10 ML SOL IV PRN ×3 (01:31→21:09)
[2018-12-15] MEDS: VANCOMYCIN HCL 500 MG PDS 500 MG in SODIUM CHLORIDE 0.9% 100 ML 100 ML IV SCH (04:28)
[2018-12-15 07:42] LABS: BASOPHILS % (AUTO) 1 % (0-3); EOSINOPHILS % (AUTO) 1 % (0-9); HEMATOCRIT 35 % (39-53); HEMOGLOBIN 11.3 gm/dl (13.5-17.7); LYMPHOCYTES % (AUTO) 10.2 % (10-50); MEAN CORPUSCULAR HEMOGLOBIN 26.3 pg (27.0-32.0); MEAN CORPUSCULAR HGB CONC 32.5 gm/dl (32.0-36.0); MONOCYTES % (AUTO) 8.5 % (0-12); NEUTROPHILS % (AUTO) 79.8 % (37-80)
[2018-12-15 07:47] LABS: MEAN CORPUSCULAR VOLUME 81 fL (80-100)
[2018-12-15 07:54] LABS: CALCIUM 9.3 mg/dl (8.5-10.1); CARBON DIOXIDE 25.7 mEq/L (21-32); CREATININE 1.38 mg/dl (0.80-1.30); POTASSIUM 4.7 mMol/L (3.5-5.1)
[2018-12-15] MEDS: NOVOLOG FLEXPEN SC SCH ×4 (09:02→21:24)
[2018-12-15] MEDS: DULOXETINE HCL 30 MG CAPSULE.DR PO SCH (09:03)
[2018-12-15] MEDS: METOPROLOL SUCCINATE 50 MG ER TAB PO SCH (09:03)
[2018-12-15] MEDS: PANTOPRAZOLE SODIUM 40 MG ECT PO SCH (09:03)
[2018-12-15] MEDS: ENOXAPARIN 40 MG SOL SC SCH (09:04)
[2018-12-15] MEDS: PREDNISONE 5 MG TAB PO SCH (09:22)
[2018-12-15] MEDS: ASPIRIN EC 81 MG PO SCH ×2 (09:22→21:07)
[2018-12-15] MEDS: GABAPENTIN 300 MG CAP PO SCH ×3 (09:22→21:08)
[2018-12-15] MEDS: TACROLIMUS 1 MG CAP PO SCH ×2 (11:04→21:10)
[2018-12-15] MEDS: MYCOPHENOLATE 250 MG PO SCH ×2 (11:05→21:07)
[2018-12-15] MEDS ORDERED: SODIUM CHLORIDE 0.9% 250 ML 250 ML IV ONE (15:31)
[2018-12-15] MEDS ORDERED: VANCOMYCIN HYDROCHLORIDE 500 MG PDS IV ONE (15:31)
[2018-12-15] MEDS: VANCOMYCIN HCL 500 MG PDS 1,000 MG in SODIUM CHLORIDE 0.9% 250 ML 250 ML IV SCH (16:35)
[2018-12-15] MEDS ORDERED: PIPERACILLIN/TAZOBACT 3.375 GM PDS IV ONE (17:36)
[2018-12-15] MEDS ORDERED: SODIUM CHLORIDE 0.9% 100 ML 100 ML IV ONE (17:36)
[2018-12-15] MEDS: ATORVASTATIN 10 MG TAB PO SCH (21:08)
[2018-12-15] MEDS: INSULIN GLARGINE, RECOMBINAN 100 U/ML SOL SC SCH (21:23)
[2018-12-16] MEDS ORDERED: SODIUM CHLORIDE 0.9% 100 ML 100 ML IV ONE ×3 (00:08→16:51)
[2018-12-16] MEDS ORDERED: PIPERACILLIN/TAZOBACT 3.375 GM PDS IV ONE ×3 (00:08→16:51)
[2018-12-16] MEDS: PIPERACILLIN/TAZOBACT 3.375 GM 3.375 GM in SODIUM CHLORIDE 0.9% 100 ML 100 ML IV SCH ×3 (00:33→17:24)
[2018-12-16] MEDS: SODIUM CHLORIDE 0.9% FLUSH 10 ML SOL IV PRN ×3 (00:45→17:24)
[2018-12-16] MEDS ORDERED: VANCOMYCIN HYDROCHLORIDE 500 MG PDS IV ONE ×3 (02:52→15:45)
[2018-12-16] MEDS ORDERED: SODIUM CHLORIDE 0.9% 250 ML 250 ML IV ONE ×2 (02:52→15:44)
[2018-12-16] MEDS: VANCOMYCIN HCL 500 MG PDS 1,000 MG in SODIUM CHLORIDE 0.9% 250 ML 250 ML IV SCH ×2 (03:20→16:06)
[2018-12-16 07:22] LABS: CALCIUM 8.8 mg/dl (8.5-10.1); CREATININE 1.24 mg/dl (0.80-1.30); POTASSIUM 4.5 mMol/L (3.5-5.1)
[2018-12-16] MEDS: NOVOLOG FLEXPEN SC SCH ×5 (08:41→20:37)
[2018-12-16] MEDS: MYCOPHENOLATE 250 MG PO SCH ×2 (08:44→20:30)
[2018-12-16] MEDS: TACROLIMUS 1 MG CAP PO SCH ×2 (08:44→20:30)
[2018-12-16] MEDS: GABAPENTIN 300 MG CAP PO SCH ×3 (08:45→20:30)
[2018-12-16] MEDS: DULOXETINE HCL 30 MG CAPSULE.DR PO SCH (08:46)
[2018-12-16] MEDS: METOPROLOL SUCCINATE 50 MG ER TAB PO SCH (08:47)
[2018-12-16] MEDS: ASPIRIN EC 81 MG PO SCH ×2 (08:47→20:30)
[2018-12-16] MEDS: PREDNISONE 5 MG TAB PO SCH (08:47)
[2018-12-16] MEDS: PANTOPRAZOLE SODIUM 40 MG ECT PO SCH (08:48)
[2018-12-16] MEDS: ENOXAPARIN 40 MG SOL SC SCH (08:56)
[2018-12-16] MEDS: INSULIN GLARGINE, RECOMBINAN 100 U/ML SOL SC SCH ×2 (08:56→20:38)
[2018-12-16] MEDS: ATORVASTATIN 10 MG TAB PO SCH (20:30)
[2018-12-16] MEDS: NOVOLOG FLEXPEN SC ONE (23:22)
[2018-12-17] MEDS ORDERED: SODIUM CHLORIDE 0.9% 100 ML 100 ML IV ONE (00:39)
[2018-12-17] MEDS ORDERED: PIPERACILLIN/TAZOBACT 3.375 GM PDS IV ONE (00:39)
[2018-12-17] MEDS: PIPERACILLIN/TAZOBACT 3.375 GM 3.375 GM in SODIUM CHLORIDE 0.9% 100 ML 100 ML IV SCH (00:58)
[2018-12-17] MEDS: SODIUM CHLORIDE 0.9% FLUSH 10 ML SOL IV PRN ×3 (00:58→21:48)
[2018-12-17] MEDS ORDERED: VANCOMYCIN HYDROCHLORIDE 500 MG PDS IV ONE (03:11)
[2018-12-17] MEDS ORDERED: SODIUM CHLORIDE 0.9% 250 ML 250 ML IV ONE (03:11)
[2018-12-17] MEDS: VANCOMYCIN HCL 500 MG PDS 1,000 MG in SODIUM CHLORIDE 0.9% 250 ML 250 ML IV SCH (03:23)
[2018-12-17] MEDS: INSULIN GLARGINE, RECOMBINAN 100 U/ML SOL SC SCH ×2 (08:39→21:37)
[2018-12-17] MEDS: NOVOLOG FLEXPEN SC SCH ×9 (08:41→21:38)
[2018-12-17] MEDS: ASPIRIN EC 81 MG PO SCH ×2 (08:42→21:33)
[2018-12-17] MEDS: MYCOPHENOLATE 250 MG PO SCH ×2 (08:43→21:35)
[2018-12-17] MEDS: DULOXETINE HCL 30 MG CAPSULE.DR PO SCH (08:44)
[2018-12-17] MEDS: GABAPENTIN 300 MG CAP PO SCH ×3 (08:45→21:35)
[2018-12-17] MEDS: TACROLIMUS 1 MG CAP PO SCH ×2 (08:46→21:34)
[2018-12-17] MEDS: PREDNISONE 5 MG TAB PO SCH (08:46)
[2018-12-17] MEDS: METOPROLOL SUCCINATE 50 MG ER TAB PO SCH (08:47)
[2018-12-17] MEDS: PANTOPRAZOLE SODIUM 40 MG ECT PO SCH (08:47)
[2018-12-17] MEDS: DOXYCYCLINE 100 MG TAB PO SCH ×2 (08:53→21:35)
[2018-12-17] MEDS: ENOXAPARIN 40 MG SOL SC SCH (08:54)
[2018-12-17] MEDS: CEFDINIR 300 MG CAP PO SCH ×2 (11:51→21:36)
[2018-12-17] MEDS: CYCLOBENZAPRINE 10 MG TAB PO PRN (12:47)
[2018-12-17] MEDS: ATORVASTATIN 10 MG TAB PO SCH (21:36)
[2018-12-17] MEDS: NOVOLOG FLEXPEN SC ONE (21:38)
[2018-12-18 07:52] LABS: CALCIUM 9.1 mg/dl (8.5-10.1); CARBON DIOXIDE 27.6 mEq/L (21-32); CREATININE 1.24 mg/dl (0.80-1.30); CRP INFLAMMATORY 2.03 mg/dl (0.00-0.33)
[2018-12-18 08:00] LABS: BASOPHILS % (AUTO) 1 % (0-3); EOSINOPHILS % (AUTO) 1 % (0-9); HEMATOCRIT 34 % (39-53); HEMOGLOBIN 10.8 gm/dl (13.5-17.7); LYMPHOCYTES % (AUTO) 14.9 % (10-50); MEAN CORPUSCULAR HEMOGLOBIN 26.5 pg (27.0-32.0); MEAN CORPUSCULAR VOLUME 83 fL (80-100); MONOCYTES % (AUTO) 10.4 % (0-12); NEUTROPHILS % (AUTO) 72.3 % (37-80)
[2018-12-18] MEDS: NOVOLOG FLEXPEN SC SCH ×8 (08:07→21:07)
[2018-12-18] MEDS: GABAPENTIN 300 MG CAP PO SCH ×3 (08:08→21:06)
[2018-12-18] MEDS: CEFDINIR 300 MG CAP PO SCH ×2 (08:08→21:08)
[2018-12-18] MEDS: METOPROLOL SUCCINATE 50 MG ER TAB PO SCH (08:09)
[2018-12-18] MEDS: PREDNISONE 5 MG TAB PO SCH (08:09)
[2018-12-18] MEDS: TACROLIMUS 1 MG CAP PO SCH ×2 (08:10→21:08)
[2018-12-18] MEDS: DOXYCYCLINE 100 MG TAB PO SCH ×2 (08:11→21:04)
[2018-12-18] MEDS: MYCOPHENOLATE 250 MG PO SCH ×2 (08:11→21:03)
[2018-12-18] MEDS: DULOXETINE HCL 30 MG CAPSULE.DR PO SCH (08:11)
[2018-12-18] MEDS: PANTOPRAZOLE SODIUM 40 MG ECT PO SCH (08:12)
[2018-12-18] MEDS: ASPIRIN EC 81 MG PO SCH ×2 (08:12→21:03)
[2018-12-18] MEDS: INSULIN GLARGINE, RECOMBINAN 100 U/ML SOL SC SCH ×2 (08:15→21:04)
[2018-12-18] MEDS: ENOXAPARIN 40 MG SOL SC SCH (08:21)
[2018-12-18] MEDS: SODIUM CHLORIDE 0.9% FLUSH 10 ML SOL IV PRN ×2 (08:31→21:03)
[2018-12-18] MEDS ORDERED: HYDRALAZINE HYDROCHLORIDE 20 MG/ML SOL IV ONE (21:05)
[2018-12-18] MEDS: ATORVASTATIN 10 MG TAB PO SCH (21:05)
[2018-12-18] MEDS ORDERED: HYDRALAZINE HYDROCHLORIDE 20 MG/ML SOL ONE (21:36)
[2018-12-18] MEDS: ACETAMINOPHEN 500 MG 500 MG TAB PO PRN (22:45)
[2018-12-19] MEDS: INSULIN GLARGINE, RECOMBINAN 100 U/ML SOL SC SCH ×2 (08:24→21:13)
[2018-12-19] MEDS: NOVOLOG FLEXPEN SC SCH ×8 (08:25→21:14)
[2018-12-19] MEDS: ENOXAPARIN 40 MG SOL SC SCH (08:25)
[2018-12-19] MEDS: METOPROLOL SUCCINATE 50 MG ER TAB PO SCH (08:28)
[2018-12-19] MEDS: PREDNISONE 5 MG TAB PO SCH (08:29)
[2018-12-19] MEDS: MYCOPHENOLATE 250 MG PO SCH ×2 (08:29→21:09)
[2018-12-19] MEDS: CEFDINIR 300 MG CAP PO SCH ×2 (08:30→21:15)
[2018-12-19] MEDS: DULOXETINE HCL 30 MG CAPSULE.DR PO SCH (08:30)
[2018-12-19] MEDS: DOXYCYCLINE 100 MG TAB PO SCH ×2 (08:30→21:15)
[2018-12-19] MEDS: TACROLIMUS 1 MG CAP PO SCH ×2 (08:31→21:11)
[2018-12-19] MEDS: ASPIRIN EC 81 MG PO SCH ×2 (08:31→21:09)
[2018-12-19] MEDS: PANTOPRAZOLE SODIUM 40 MG ECT PO SCH (08:31)
[2018-12-19] MEDS: GABAPENTIN 300 MG CAP PO SCH ×3 (08:31→21:10)
[2018-12-19] MEDS: AMLODIPINE 5 MG TAB PO SCH (09:17)
[2018-12-19 16:39] VITALS: RESP 18
[2018-12-19] MEDS: ATORVASTATIN 10 MG TAB PO SCH (21:10)
[2018-12-19] MEDS: CYCLOBENZAPRINE 10 MG TAB PO PRN (21:41)
[2018-12-20 07:48] LABS: BASOPHILS % (AUTO) 1 % (0-3); EOSINOPHILS % (AUTO) 1 % (0-9); HEMATOCRIT 33 % (39-53); HEMOGLOBIN 10.5 gm/dl (13.5-17.7); LYMPHOCYTES % (AUTO) 15.4 % (10-50); MEAN CORPUSCULAR HEMOGLOBIN 26.1 pg (27.0-32.0); MEAN CORPUSCULAR HGB CONC 31.8 gm/dl (32.0-36.0); MEAN CORPUSCULAR VOLUME 82 fL (80-100); MONOCYTES % (AUTO) 10.8 % (0-12); NEUTROPHILS % (AUTO) 71.4 % (37-80)
[2018-12-20 07:58] LABS: ALBUMIN 2.1 gm/dl (3.4-5.0); BILIRUBIN,TOTAL 0.2 mg/dl (0.2-1.0); CALCIUM 9.1 mg/dl (8.5-10.1); CARBON DIOXIDE 26.7 mEq/L (21-32); CREATININE 1.4 mg/dl (0.80-1.30); CRP INFLAMMATORY 2.66 mg/dl (0.00-0.33); TOTAL PROTEIN 6.2 gm/dl (6.4-8.2)
[2018-12-20] MEDS: AMLODIPINE 5 MG TAB PO SCH (08:34)
[2018-12-20] MEDS: GABAPENTIN 300 MG CAP PO SCH ×2 (08:34→13:38)
[2018-12-20] MEDS: DOXYCYCLINE 100 MG TAB PO SCH ×2 (08:35→18:30)
[2018-12-20] MEDS: TACROLIMUS 1 MG CAP PO SCH (08:35)
[2018-12-20] MEDS: CEFDINIR 300 MG CAP PO SCH ×4 (08:35→18:29)
[2018-12-20] MEDS: PANTOPRAZOLE SODIUM 40 MG ECT PO SCH (08:35)
[2018-12-20] MEDS: MYCOPHENOLATE 250 MG PO SCH (08:36)
[2018-12-20] MEDS: METOPROLOL SUCCINATE 50 MG ER TAB PO SCH (08:36)
[2018-12-20] MEDS: DULOXETINE HCL 30 MG CAPSULE.DR PO SCH (08:37)
[2018-12-20] MEDS: PREDNISONE 5 MG TAB PO SCH (08:37)
[2018-12-20] MEDS: ASPIRIN EC 81 MG PO SCH (08:38)
[2018-12-20] MEDS: INSULIN GLARGINE, RECOMBINAN 100 U/ML SOL SC SCH (08:38)
[2018-12-20] MEDS: NOVOLOG FLEXPEN SC SCH ×6 (08:39→17:14)
[2018-12-20] MEDS ORDERED: METHYLPREDNISOLONE 1 GM/ML PDS 1,000 MG/16 ML PDS IV ONE (11:00)
[2018-12-20] MEDS ORDERED: BUPIVACAINE HCL 0.25% MPF 30 ML SOL INFIL ONE (11:00)
[2018-12-20] MEDS ORDERED: LIDOCAINE HCL 1% MPF 30 SOL INFIL ONE (11:00)
[2018-12-20] MEDS ORDERED: BUPIVACAINE 0.25% SC ONE (11:00)
[2018-12-20] MEDS: ENOXAPARIN 40 MG SOL SC SCH (12:15)
[2018-12-20 16:10] VITALS: BP 156/78; PULSE 76; TEMP 98.4; O2SAT 93
== END 2018-12-20 18:55 | disposition home or self-care (01) | DRG 603 ==
LOC: ACUTE CARE 12:40
PROVIDERS: ADMIT Family Medicine; ATTEND Family Medicine
PROC: F01ZBZZ Bed Mobility Assessment (ICD-10-PCS; principal; 2018-12-16)
PROC: F01ZCFZ Transfer Assessment using Assistive, Adaptive, Supportive or Protective Equipment (ICD-10-PCS; 2018-12-16)
PROC: 0SJC3ZZ Inspection of Right Knee Joint, Percutaneous Approach (ICD-10-PCS; 2018-12-20)
PROC: 3E0U33Z Introduction of Anti-inflammatory into Joints, Percutaneous Approach (ICD-10-PCS; 2018-12-20)
PROC: 3E0U3BZ Introduction of Anesthetic Agent into Joints, Percutaneous Approach (ICD-10-PCS; 2018-12-20)
DX: L03.115 Cellulitis of right lower limb (principal); Z94.0 Kidney transplant status; E10.40 Type 1 diabetes mellitus with diabetic neuropathy, unspecified; I10 Essential (primary) hypertension; Z79.4 Long term (current) use of insulin; M79.604 Pain in right leg; E10.59 Type 1 diabetes mellitus with other circulatory complications; N18.9 Chronic kidney disease, unspecified; Z60.9 Problem related to social environment, unspecified; Z89.511 Acquired absence of right leg below knee; M71.21 Synovial cyst of popliteal space [Baker], right knee
CPT/HCPCS: 36415; 80048; 80053; 82962; 83036; 85025; 87040; J0360; J1650; J1817; J2543; J2930; J3370; A6402; A9270-GY; J1815; J2001

== ENCOUNTER 2019-01-16 10:29 | Inpatient (IN) | payer MEDICARE, BC ==
[2019-01-16 13:41] LABS: LACTIC ACID 1.2 mMol/L (0.0-2.0)
[2019-01-16] MEDS ORDERED: DEXTROSE 50% 1 VIAL SOL IV PRN (13:56)
[2019-01-16] MEDS ORDERED: GLUCAGON HYDROCHLORIDE 1 MG PDS IM PRN (13:56)
[2019-01-16 14:06] LABS: CRP INFLAMMATORY 4.56 mg/dl (0.00-0.33)
[2019-01-16] MEDS ORDERED: NOVOLOG FLEXPEN SC PRN (14:06)
[2019-01-16] MEDS ORDERED: ACETAMINOPHEN 325 MG PO PRN (14:06)
[2019-01-16] MEDS ORDERED: HYDROMORPHONE 1 MG/ML SYRINGE IV PRN (14:46)
[2019-01-16] MEDS: HUMALOG PEN 100 U/ML SC SCH ×3 (15:10→20:54)
[2019-01-16] MEDS ORDERED: PIPERACILLIN/TAZOBACT 3.375 GM PDS IV ONE ×2 (15:36→20:25)
[2019-01-16] MEDS ORDERED: SODIUM CHLORIDE 0.9% 100 ML 100 ML IV ONE ×2 (15:37→20:25)
[2019-01-16] MEDS ORDERED: SODIUM CHLORIDE 0.9% 1000ML 1,000 ML IV ONE (15:40)
[2019-01-16] MEDS: PIPERACILLIN/TAZOBACT 3.375 GM 3.375 GM in SODIUM CHLORIDE 0.9% 100 ML 100 ML IV SCH ×2 (15:49→21:00)
[2019-01-16] MEDS: ENOXAPARIN 40 MG SOL SC SCH (16:56)
[2019-01-16] MEDS: TACROLIMUS 1 MG PO SCH (20:51)
[2019-01-16] MEDS: MYCOPHENOLATE PO SCH (20:51)
[2019-01-16] MEDS: ATORVASTATIN 10 MG TAB PO SCH (21:00)
[2019-01-16] MEDS: ASPIRIN EC 81 MG PO SCH (21:00)
[2019-01-16] MEDS: GABAPENTIN 300 MG CAP PO SCH (21:00)
[2019-01-16] MEDS: MULTIVITAMIN2 1 EA TAB PO SCH (21:00)
[2019-01-16] MEDS ORDERED: VANCOMYCIN HYDROCHLORIDE 500 MG PDS IV ONE (22:19)
[2019-01-16] MEDS ORDERED: SODIUM CHLORIDE 0.9% 250 ML 250 ML IV ONE (22:19)
[2019-01-16] MEDS: VANCOMYCIN HCL 500 MG PDS 1,000 MG in SODIUM CHLORIDE 0.9% 250 ML 250 ML IV SCH (22:31)
[2019-01-17] MEDS ORDERED: SODIUM CHLORIDE 0.9% 100 ML 100 ML IV ONE ×4 (02:46→19:21)
[2019-01-17] MEDS ORDERED: PIPERACILLIN/TAZOBACT 3.375 GM PDS IV ONE ×4 (02:46→19:21)
[2019-01-17] MEDS: PIPERACILLIN/TAZOBACT 3.375 GM 3.375 GM in SODIUM CHLORIDE 0.9% 100 ML 100 ML IV SCH ×4 (03:00→19:53)
[2019-01-17 07:35] LABS: BASOPHILS % (AUTO) 1 % (0-3); EOSINOPHILS % (AUTO) 2 % (0-9); HEMATOCRIT 27 % (39-53); HEMOGLOBIN 8.5 gm/dl (13.5-17.7); MEAN CORPUSCULAR HEMOGLOBIN 25.2 pg (27.0-32.0); MONOCYTES % (AUTO) 10.6 % (0-12); NEUTROPHILS % (AUTO) 66.8 % (37-80)
[2019-01-17 07:42] LABS: MEAN CORPUSCULAR VOLUME 79 fL (80-100)
[2019-01-17 07:44] LABS: CALCIUM 8.3 mg/dl (8.5-10.1); CARBON DIOXIDE 24.2 mEq/L (21-32); CREATININE 1.57 mg/dl (0.80-1.30); CRP INFLAMMATORY 5.46 mg/dl (0.00-0.33); POTASSIUM 4.2 mMol/L (3.5-5.1)
[2019-01-17] MEDS: HUMALOG PEN 100 U/ML SC SCH ×4 (08:32→20:38)
[2019-01-17] MEDS: INSULIN DEGLUDEC 72 UNIT SC SCH (08:47)
[2019-01-17] MEDS: TACROLIMUS 2 MG PO SCH (08:50)
[2019-01-17] MEDS: MYCOPHENOLATE PO SCH ×2 (08:50→20:34)
[2019-01-17] MEDS: ASPIRIN EC 81 MG PO SCH ×2 (08:54→20:37)
[2019-01-17] MEDS: DULOXETINE HCL 30 MG CAPSULE.DR PO SCH (08:54)
[2019-01-17] MEDS: PREDNISONE 5 MG TAB PO SCH (08:54)
[2019-01-17] MEDS: AMLODIPINE 5 MG TAB PO SCH (08:54)
[2019-01-17] MEDS: METOPROLOL SUCCINATE 50 MG ER TAB PO SCH (08:54)
[2019-01-17] MEDS ORDERED: OMEPRAZOLE 20 MG CAPSULE PO SCH (09:00)
[2019-01-17] MEDS ORDERED: SODIUM CHLORIDE 0.9% 250 ML 250 ML IV ONE ×2 (09:17→21:06)
[2019-01-17] MEDS ORDERED: VANCOMYCIN HYDROCHLORIDE 500 MG PDS IV ONE ×2 (09:17→21:06)
[2019-01-17] MEDS: VANCOMYCIN HCL 500 MG PDS 1,000 MG in SODIUM CHLORIDE 0.9% 250 ML 250 ML IV SCH ×2 (09:35→21:15)
[2019-01-17] MEDS: PANTOPRAZOLE SODIUM 40 MG ECT PO SCH (09:36)
[2019-01-17] MEDS: GABAPENTIN 300 MG CAP PO SCH ×2 (09:55→20:37)
[2019-01-17] MEDS: TRAMADOL HYDROCHLORIDE 50 MG TAB PO PRN (11:28)
[2019-01-17] MEDS: ENOXAPARIN 40 MG SOL SC SCH (17:30)
[2019-01-17] MEDS: TACROLIMUS 1 MG PO SCH (20:34)
[2019-01-17] MEDS: ATORVASTATIN 10 MG TAB PO SCH (20:37)
[2019-01-17] MEDS: MULTIVITAMIN2 1 EA TAB PO SCH (20:37)
[2019-01-18] MEDS ORDERED: SODIUM CHLORIDE 0.9% 100 ML 100 ML IV ONE ×2 (02:09→07:40)
[2019-01-18] MEDS ORDERED: PIPERACILLIN/TAZOBACT 3.375 GM PDS IV ONE ×3 (02:09→10:59)
[2019-01-18] MEDS: PIPERACILLIN/TAZOBACT 3.375 GM 3.375 GM in SODIUM CHLORIDE 0.9% 100 ML 100 ML IV SCH ×3 (02:27→14:17)
[2019-01-18 07:36] LABS: BASOPHILS % (AUTO) 1 % (0-3); EOSINOPHILS % (AUTO) 3 % (0-9); HEMATOCRIT 27 % (39-53); HEMOGLOBIN 8.6 gm/dl (13.5-17.7); LYMPHOCYTES % (AUTO) 16.1 % (10-50); MEAN CORPUSCULAR HEMOGLOBIN 24.8 pg (27.0-32.0); MEAN CORPUSCULAR HGB CONC 31.5 gm/dl (32.0-36.0); MONOCYTES % (AUTO) 9.7 % (0-12); NEUTROPHILS % (AUTO) 70.1 % (37-80)
[2019-01-18 07:37] LABS: CALCIUM 8.3 mg/dl (8.5-10.1); CARBON DIOXIDE 24.1 mEq/L (21-32); CREATININE 1.57 mg/dl (0.80-1.30); POTASSIUM 4.2 mMol/L (3.5-5.1)
[2019-01-18 07:43] LABS: MEAN CORPUSCULAR VOLUME 79 fL (80-100)
[2019-01-18] MEDS ORDERED: VANCOMYCIN HYDROCHLORIDE 500 MG PDS IV ONE (07:50)
[2019-01-18] MEDS ORDERED: SODIUM CHLORIDE 0.9% 250 ML 250 ML IV ONE (07:50)
[2019-01-18 08:09] LABS: ANISOCYTOSIS SLIGHT AMT; POIKILOCYTOSIS SLIGHT AMT; SPHEROCYTES PRESENT
[2019-01-18] MEDS: HUMALOG PEN 100 U/ML SC SCH ×4 (08:21→21:26)
[2019-01-18] MEDS: PANTOPRAZOLE SODIUM 40 MG ECT PO SCH (08:29)
[2019-01-18] MEDS: METOPROLOL SUCCINATE 50 MG ER TAB PO SCH (08:29)
[2019-01-18] MEDS: AMLODIPINE 5 MG TAB PO SCH (08:29)
[2019-01-18] MEDS: DULOXETINE HCL 30 MG CAPSULE.DR PO SCH (08:30)
[2019-01-18] MEDS: TACROLIMUS 2 MG PO SCH (08:30)
[2019-01-18] MEDS: TRAMADOL HYDROCHLORIDE 50 MG TAB PO PRN (08:31)
[2019-01-18] MEDS: ASPIRIN EC 81 MG PO SCH ×2 (08:32→21:22)
[2019-01-18] MEDS: MYCOPHENOLATE PO SCH ×2 (08:32→21:22)
[2019-01-18] MEDS: INSULIN DEGLUDEC 72 UNIT SC SCH (08:43)
[2019-01-18] MEDS: PREDNISONE 5 MG TAB PO SCH (08:45)
[2019-01-18] MEDS ORDERED: WATER, STERILE 20 ML 40 ML ONE (09:02)
[2019-01-18] MEDS: VANCOMYCIN HCL 500 MG PDS 1,000 MG in SODIUM CHLORIDE 0.9% 250 ML 250 ML IV SCH ×2 (09:15→21:40)
[2019-01-18] MEDS: GABAPENTIN 300 MG CAP PO SCH ×2 (10:39→21:22)
[2019-01-18] MEDS: ENOXAPARIN 40 MG SOL SC SCH (17:11)
[2019-01-18] MEDS: TACROLIMUS 1 MG PO SCH (21:22)
[2019-01-18] MEDS: ATORVASTATIN 10 MG TAB PO SCH (21:22)
[2019-01-18] MEDS: MULTIVITAMIN2 1 EA TAB PO SCH (21:22)
[2019-01-19 07:52] LABS: ALBUMIN 1.9 gm/dl (3.4-5.0); BILIRUBIN,TOTAL 0.1 mg/dl (0.2-1.0); CALCIUM 8.5 mg/dl (8.5-10.1); CREATININE 1.67 mg/dl (0.80-1.30); POTASSIUM 4.6 mMol/L (3.5-5.1); TOTAL PROTEIN 6.2 gm/dl (6.4-8.2)
[2019-01-19 07:58] LABS: BASOPHILS % (AUTO) 1 % (0-3); EOSINOPHILS % (AUTO) 3 % (0-9); HEMATOCRIT 27 % (39-53); HEMOGLOBIN 8.4 gm/dl (13.5-17.7); MEAN CORPUSCULAR HEMOGLOBIN 25.1 pg (27.0-32.0); MEAN CORPUSCULAR HGB CONC 31.6 gm/dl (32.0-36.0); MONOCYTES % (AUTO) 8.2 % (0-12); NEUTROPHILS % (AUTO) 67.8 % (37-80)
[2019-01-19 08:01] LABS: MEAN CORPUSCULAR VOLUME 79 fL (80-100)
[2019-01-19] MEDS: HUMALOG PEN 100 U/ML SC SCH ×4 (08:52→21:19)
[2019-01-19] MEDS: TACROLIMUS 2 MG PO SCH (08:55)
[2019-01-19] MEDS: MYCOPHENOLATE PO SCH ×2 (08:56→21:23)
[2019-01-19] MEDS: DULOXETINE HCL 30 MG CAPSULE.DR PO SCH (08:59)
[2019-01-19] MEDS: ASPIRIN EC 81 MG PO SCH ×2 (08:59→20:35)
[2019-01-19] MEDS: PREDNISONE 5 MG TAB PO SCH (09:00)
[2019-01-19] MEDS: AMLODIPINE 5 MG TAB PO SCH (09:00)
[2019-01-19] MEDS: PANTOPRAZOLE SODIUM 40 MG ECT PO SCH (09:01)
[2019-01-19] MEDS: METOPROLOL SUCCINATE 50 MG ER TAB PO SCH (09:02)
[2019-01-19] MEDS: INSULIN DEGLUDEC 72 UNIT SC SCH (09:04)
[2019-01-19] MEDS: VANCOMYCIN HCL 500 MG PDS 1,000 MG in SODIUM CHLORIDE 0.9% 250 ML 250 ML IV SCH ×2 (09:35→21:26)
[2019-01-19] MEDS: GABAPENTIN 300 MG CAP PO SCH ×2 (10:54→20:37)
[2019-01-19] MEDS: TRAMADOL HYDROCHLORIDE 50 MG TAB PO PRN (17:09)
[2019-01-19] MEDS: ENOXAPARIN 40 MG SOL SC SCH (17:10)
[2019-01-19] MEDS: ATORVASTATIN 10 MG TAB PO SCH (20:35)
[2019-01-19] MEDS: MULTIVITAMIN2 1 EA TAB PO SCH (20:37)
[2019-01-19] MEDS ORDERED: VANCOMYCIN HYDROCHLORIDE 500 MG PDS IV ONE (21:01)
[2019-01-19] MEDS ORDERED: SODIUM CHLORIDE 0.9% 250 ML 250 ML IV ONE (21:01)
[2019-01-19] MEDS: TACROLIMUS 1 MG PO SCH (21:21)
[2019-01-20 07:18] LABS: ALBUMIN 2.1 gm/dl (3.4-5.0); BILIRUBIN,TOTAL 0.2 mg/dl (0.2-1.0); CALCIUM 8.5 mg/dl (8.5-10.1); CARBON DIOXIDE 23.9 mEq/L (21-32); CREATININE 1.46 mg/dl (0.80-1.30); CRP INFLAMMATORY 0.84 mg/dl (0.00-0.33); POTASSIUM 4.3 mMol/L (3.5-5.1); TOTAL PROTEIN 6.2 gm/dl (6.4-8.2)
[2019-01-20 07:26] LABS: BASOPHILS % (AUTO) 1 % (0-3); EOSINOPHILS % (AUTO) 2 % (0-9); HEMATOCRIT 27 % (39-53); HEMOGLOBIN 8.7 gm/dl (13.5-17.7); LYMPHOCYTES % (AUTO) 19.8 % (10-50); MEAN CORPUSCULAR HGB CONC 31.6 gm/dl (32.0-36.0); NEUTROPHILS % (AUTO) 67.2 % (37-80)
[2019-01-20 07:35] LABS: MEAN CORPUSCULAR VOLUME 79 fL (80-100)
[2019-01-20] MEDS: HUMALOG PEN 100 U/ML SC SCH ×4 (08:34→21:46)
[2019-01-20] MEDS: MYCOPHENOLATE PO SCH ×2 (08:35→21:41)
[2019-01-20] MEDS: METOPROLOL SUCCINATE 50 MG ER TAB PO SCH (08:35)
[2019-01-20] MEDS: DULOXETINE HCL 30 MG CAPSULE.DR PO SCH (08:37)
[2019-01-20] MEDS: ASPIRIN EC 81 MG PO SCH ×2 (08:38→21:40)
[2019-01-20] MEDS: PREDNISONE 5 MG TAB PO SCH (08:38)
[2019-01-20] MEDS: PANTOPRAZOLE SODIUM 40 MG ECT PO SCH (08:38)
[2019-01-20] MEDS: AMLODIPINE 5 MG TAB PO SCH (08:39)
[2019-01-20] MEDS: TACROLIMUS 2 MG PO SCH (08:41)
[2019-01-20] MEDS: INSULIN DEGLUDEC 72 UNIT SC SCH ×2 (08:44→08:45)
[2019-01-20] MEDS ORDERED: LEVOFLOXACIN 500 MG TAB ONE (08:44)
[2019-01-20] MEDS ORDERED: LEVOFLOXACIN 500 MG TAB PO SCH (09:00)
[2019-01-20] MEDS ORDERED: VANCOMYCIN HYDROCHLORIDE 500 MG PDS IV ONE ×2 (09:27→21:14)
[2019-01-20] MEDS: TRAMADOL HYDROCHLORIDE 50 MG TAB PO PRN (09:37)
[2019-01-20] MEDS: GABAPENTIN 300 MG CAP PO SCH ×2 (09:37→21:41)
[2019-01-20] MEDS: VANCOMYCIN HCL 500 MG PDS 1,000 MG in SODIUM CHLORIDE 0.9% 250 ML 250 ML IV SCH ×2 (09:37→21:35)
[2019-01-20] MEDS: ENOXAPARIN 40 MG SOL SC SCH (17:29)
[2019-01-20] MEDS ORDERED: SODIUM CHLORIDE 0.9% 250 ML 250 ML IV ONE (21:14)
[2019-01-20] MEDS: ATORVASTATIN 10 MG TAB PO SCH (21:40)
[2019-01-20] MEDS: MULTIVITAMIN2 1 EA TAB PO SCH (21:42)
[2019-01-20] MEDS: TACROLIMUS 1 MG PO SCH (21:42)
[2019-01-21 07:19] LABS: BASOPHILS % (AUTO) 1 % (0-3); EOSINOPHILS % (AUTO) 1 % (0-9); HEMATOCRIT 28 % (39-53); HEMOGLOBIN 8.9 gm/dl (13.5-17.7); LYMPHOCYTES % (AUTO) 19.1 % (10-50); MEAN CORPUSCULAR HEMOGLOBIN 25.8 pg (27.0-32.0); MEAN CORPUSCULAR HGB CONC 32.3 gm/dl (32.0-36.0); NEUTROPHILS % (AUTO) 69.2 % (37-80)
[2019-01-21 07:34] LABS: MEAN CORPUSCULAR VOLUME 80 fL (80-100)
[2019-01-21 07:39] LABS: ALBUMIN 2.2 gm/dl (3.4-5.0); BILIRUBIN,TOTAL 0.2 mg/dl (0.2-1.0); CALCIUM 8.4 mg/dl (8.5-10.1); CARBON DIOXIDE 24.5 mEq/L (21-32); CREATININE 1.48 mg/dl (0.80-1.30); CRP INFLAMMATORY 0.55 mg/dl (0.00-0.33); POTASSIUM 4.4 mMol/L (3.5-5.1); TOTAL PROTEIN 6.4 gm/dl (6.4-8.2)
[2019-01-21 07:44] LABS: *FOLATE 7.3 ng/mL (2.6-20.0)
[2019-01-21] MEDS: HUMALOG PEN 100 U/ML SC SCH ×4 (08:19→22:25)
[2019-01-21] MEDS: DULOXETINE HCL 30 MG CAPSULE.DR PO SCH (08:31)
[2019-01-21] MEDS: ASPIRIN EC 81 MG PO SCH ×2 (08:31→22:07)
[2019-01-21] MEDS: AMLODIPINE 5 MG TAB PO SCH (08:32)
[2019-01-21] MEDS: MYCOPHENOLATE PO SCH ×2 (08:32→22:06)
[2019-01-21] MEDS: PREDNISONE 5 MG TAB PO SCH (08:33)
[2019-01-21] MEDS: PANTOPRAZOLE SODIUM 40 MG ECT PO SCH (08:33)
[2019-01-21] MEDS: TACROLIMUS 2 MG PO SCH (08:34)
[2019-01-21] MEDS: METOPROLOL SUCCINATE 50 MG ER TAB PO SCH (08:34)
[2019-01-21] MEDS: INSULIN DEGLUDEC 72 UNIT SC SCH (08:37)
[2019-01-21] MEDS ORDERED: VANCOMYCIN HYDROCHLORIDE 500 MG PDS IV ONE ×2 (10:47→21:53)
[2019-01-21] MEDS ORDERED: SODIUM CHLORIDE 0.9% 250 ML 250 ML IV ONE ×2 (10:47→21:53)
[2019-01-21] MEDS: VANCOMYCIN HCL 500 MG PDS 1,000 MG in SODIUM CHLORIDE 0.9% 250 ML 250 ML IV SCH ×2 (10:56→22:04)
[2019-01-21] MEDS: GABAPENTIN 300 MG CAP PO SCH ×2 (10:59→22:07)
[2019-01-21] MEDS: SODIUM CHLORIDE 0.9% FLUSH 10 ML SOL IV SCH ×4 (14:36→23:47)
[2019-01-21] MEDS: ENOXAPARIN 40 MG SOL SC SCH (17:14)
[2019-01-21] MEDS ORDERED: FUROSEMIDE 20mg SOL IV ONE (17:17)
[2019-01-21] MEDS: TACROLIMUS 1 MG PO SCH (22:06)
[2019-01-21] MEDS: ATORVASTATIN 10 MG TAB PO SCH (22:07)
[2019-01-21] MEDS: MULTIVITAMIN2 1 EA TAB PO SCH (22:07)
[2019-01-22] MEDS: SODIUM CHLORIDE 0.9% FLUSH 10 ML SOL IV SCH ×5 (06:03→23:30)
[2019-01-22 07:28] LABS: BASOPHILS % (AUTO) 1 % (0-3); EOSINOPHILS % (AUTO) 2 % (0-9); HEMATOCRIT 27 % (39-53); HEMOGLOBIN 8.5 gm/dl (13.5-17.7); LYMPHOCYTES % (AUTO) 18.1 % (10-50); MEAN CORPUSCULAR HGB CONC 31.3 gm/dl (32.0-36.0); MONOCYTES % (AUTO) 9.5 % (0-12); NEUTROPHILS % (AUTO) 68.8 % (37-80)
[2019-01-22 07:30] LABS: CALCIUM 8.6 mg/dl (8.5-10.1); CARBON DIOXIDE 23.9 mEq/L (21-32); CREATININE 1.34 mg/dl (0.80-1.30); POTASSIUM 4.3 mMol/L (3.5-5.1)
[2019-01-22 07:33] LABS: MEAN CORPUSCULAR VOLUME 80 fL (80-100)
[2019-01-22 07:48] LABS: ANISOCYTOSIS SLIGHT AMT; POIKILOCYTOSIS SLIGHT AMT; SPHEROCYTES PRESENT
[2019-01-22] MEDS: HUMALOG PEN 100 U/ML SC SCH ×4 (07:58→20:24)
[2019-01-22] MEDS: PANTOPRAZOLE SODIUM 40 MG ECT PO SCH (08:01)
[2019-01-22] MEDS: ASPIRIN EC 81 MG PO SCH ×2 (08:01→20:24)
[2019-01-22] MEDS: METOPROLOL SUCCINATE 50 MG ER TAB PO SCH (08:01)
[2019-01-22] MEDS: AMLODIPINE 5 MG TAB PO SCH (08:02)
[2019-01-22] MEDS: MYCOPHENOLATE PO SCH ×2 (08:03→20:26)
[2019-01-22] MEDS: DULOXETINE HCL 30 MG CAPSULE.DR PO SCH (08:03)
[2019-01-22] MEDS: PREDNISONE 5 MG TAB PO SCH (08:04)
[2019-01-22] MEDS: TACROLIMUS 2 MG PO SCH (08:05)
[2019-01-22] MEDS: INSULIN DEGLUDEC 72 UNIT SC SCH (08:06)
[2019-01-22] MEDS ORDERED: LIDOCAINE HCL 1% 50 MG/5 ML SOL INFIL ONE (08:21)
[2019-01-22] MEDS ORDERED: LIDOCAINE HCL 1% MPF 30 SOL ONE (09:00)
[2019-01-22] MEDS ORDERED: PHARMACOKINETICS 1 MISC PRN (09:02)
[2019-01-22] MEDS ORDERED: VANCOMYCIN HYDROCHLORIDE 500 MG PDS IV ONE ×2 (09:11→22:11)
[2019-01-22] MEDS ORDERED: SODIUM CHLORIDE 0.9% 250 ML 250 ML IV ONE (09:11)
[2019-01-22] MEDS: FUROSEMIDE 20 MG TAB PO SCH (09:13)
[2019-01-22] MEDS: TRAMADOL HYDROCHLORIDE 50 MG TAB PO PRN (09:13)
[2019-01-22] MEDS: VANCOMYCIN HCL 500 MG PDS 1,000 MG in SODIUM CHLORIDE 0.9% 250 ML 250 ML IV SCH (09:24)
[2019-01-22] MEDS: GABAPENTIN 300 MG CAP PO SCH ×2 (09:26→20:27)
[2019-01-22] MEDS: ENOXAPARIN 40 MG SOL SC SCH (17:47)
[2019-01-22] MEDS: ATORVASTATIN 10 MG TAB PO SCH (20:26)
[2019-01-22] MEDS: MULTIVITAMIN2 1 EA TAB PO SCH (20:27)
[2019-01-22] MEDS: TACROLIMUS 1 MG PO SCH (20:28)
[2019-01-22] MEDS ORDERED: SODIUM CHLORIDE 0.9% 100 ML 100 ML IV ONE (22:11)
[2019-01-22] MEDS: VANCOMYCIN HCL 500 MG PDS 500 MG in SODIUM CHLORIDE 0.9% 100 ML 100 ML IV SCH (22:20)
[2019-01-23] MEDS: SODIUM CHLORIDE 0.9% FLUSH 10 ML SOL IV SCH (06:12)
[2019-01-23 06:14] VITALS: O2SAT 94
[2019-01-23 07:54] LABS: ALBUMIN 2.2 gm/dl (3.4-5.0); BASOPHILS % (AUTO) 1 % (0-3); BILIRUBIN,TOTAL 0.2 mg/dl (0.2-1.0); CALCIUM 8.7 mg/dl (8.5-10.1); CARBON DIOXIDE 25.2 mEq/L (21-32); CREATININE 1.24 mg/dl (0.80-1.30); CRP INFLAMMATORY 0.28 mg/dl (0.00-0.33); EOSINOPHILS % (AUTO) 2 % (0-9); HEMATOCRIT 28 % (39-53); LYMPHOCYTES % (AUTO) 23.4 % (10-50); MEAN CORPUSCULAR HEMOGLOBIN 25.3 pg (27.0-32.0); MEAN CORPUSCULAR HGB CONC 31.6 gm/dl (32.0-36.0); MONOCYTES % (AUTO) 10.3 % (0-12); NEUTROPHILS % (AUTO) 62.6 % (37-80); POTASSIUM 4.2 mMol/L (3.5-5.1); TOTAL PROTEIN 6.1 gm/dl (6.4-8.2)
[2019-01-23 07:59] LABS: MEAN CORPUSCULAR VOLUME 80 fL (80-100)
[2019-01-23 08:06] VITALS: BP 166/65; PULSE 69; RESP 16; TEMP 97.5
[2019-01-23] MEDS: HUMALOG PEN 100 U/ML SC SCH ×2 (08:11→11:47)
[2019-01-23] MEDS ORDERED: VANCOMYCIN HYDROCHLORIDE 500 MG PDS IV ONE (09:46)
[2019-01-23] MEDS ORDERED: SODIUM CHLORIDE 0.9% 100 ML 100 ML IV ONE (09:46)
[2019-01-23] MEDS: MYCOPHENOLATE PO SCH (09:48)
[2019-01-23] MEDS: DULOXETINE HCL 30 MG CAPSULE.DR PO SCH (09:49)
[2019-01-23] MEDS: ASPIRIN EC 81 MG PO SCH (09:49)
[2019-01-23] MEDS: GABAPENTIN 300 MG CAP PO SCH (09:51)
[2019-01-23] MEDS: METOPROLOL SUCCINATE 50 MG ER TAB PO SCH (09:51)
[2019-01-23] MEDS: PANTOPRAZOLE SODIUM 40 MG ECT PO SCH (09:52)
[2019-01-23] MEDS: TACROLIMUS 2 MG PO SCH (09:52)
[2019-01-23] MEDS: PREDNISONE 5 MG TAB PO SCH (09:52)
[2019-01-23] MEDS: FUROSEMIDE 20 MG TAB PO SCH (09:52)
[2019-01-23] MEDS: AMLODIPINE 5 MG TAB PO SCH (09:52)
[2019-01-23] MEDS: INSULIN DEGLUDEC 72 UNIT SC SCH (09:53)
[2019-01-23] MEDS: VANCOMYCIN HCL 500 MG PDS 500 MG in SODIUM CHLORIDE 0.9% 100 ML 100 ML IV SCH (09:56)
== END 2019-01-23 12:45 | DRG 603 ==
LOC: ACUTE CARE 12:56
PROVIDERS: ADMIT Emergency Medicine; ATTEND Emergency Medicine
DX: L03.115 Cellulitis of right lower limb (principal); Z94.0 Kidney transplant status; L97.811 Non-pressure chronic ulcer of other part of right lower leg limited to breakdown of skin; E86.0 Dehydration; Z89.512 Acquired absence of left leg below knee; Z89.511 Acquired absence of right leg below knee; L02.415 Cutaneous abscess of right lower limb; E10.22 Type 1 diabetes mellitus with diabetic chronic kidney disease; I12.9 Hypertensive chronic kidney disease with stage 1 through stage 4 chronic kidney disease, or unspecified chronic kidney disease; N18.3 Chronic kidney disease, stage 3 (moderate); E10.59 Type 1 diabetes mellitus with other circulatory complications; R09.02 Hypoxemia
CPT/HCPCS: 36415; 71045; 80048; 80053; 82962; 85025; 85651; 86140; 87040; 87070; 87075; 87077; 87186; 93306; 94664; 97597; 99070; 99211; J1650; J1815; J1940; J2543; J3370; A6232; A6402; A6446; A9270-GY; J1170; J2001